=== PATIENT | male | born 1950 | race Caucasian/White ===

== ENCOUNTER 2021-11-11 12:11 | Outpatient (REF) | payer MEDICARE, SELFPAY ==
[2021-11-11 15:42] LABS: C Reactive Protein 0.24 mg/dL (< or = 0.50)
[2021-11-11 15:51] LABS: Erythrocyte Sedimentation Rate 20 MM/HR (0-15)
== END 2021-11-11 12:12 | disposition home or self-care (01) ==
LOC: HO.LAB 12:11
PROVIDERS: PCP Pediatrics; Visit Provider Internal Medicine Rheumatology
DX: Z13.89 Encounter for screening for other disorder (principal)
CPT/HCPCS: 36415; 82550; 85652; 86140

== ENCOUNTER → 2021-11-11 13:29 | Outpatient (BNVA) | payer MEDICARE, BC, SELFPAY | PROVIDERS: PCP Pediatrics; Visit Provider Internal Medicine Rheumatology | DX: L40.50 Arthropathic psoriasis, unspecified (principal); G60.0 Hereditary motor and sensory neuropathy; M35.3 Polymyalgia rheumatica; M17.11 Unilateral primary osteoarthritis, right knee; K62.7 Radiation proctitis | CPT/HCPCS: 36415; 82550; 85652; 86140; 99212 ==

== ENCOUNTER → 2022-01-06 14:59 | Outpatient (BNVA) | payer MEDICARE, SELFPAY | PROVIDERS: PCP Pediatrics; Visit Provider Internal Medicine Rheumatology | DX: G60.0 Hereditary motor and sensory neuropathy (principal); M35.3 Polymyalgia rheumatica; M17.11 Unilateral primary osteoarthritis, right knee; L40.9 Psoriasis, unspecified | CPT/HCPCS: 99212 ==

== ENCOUNTER 2022-01-10 11:08 | Outpatient (REF) | payer MEDICARE, SELFPAY ==
[2022-01-10 14:39] LABS: Erythrocyte Sedimentation Rate 10 MM/HR (0-15)
[2022-01-10 14:59] LABS: C Reactive Protein 0.32 mg/dL (< or = 0.50)
== END 2022-01-10 11:09 | disposition home or self-care (01) ==
LOC: HO.WFDLDS 11:08
PROVIDERS: Visit Provider Internal Medicine Rheumatology
DX: M35.3 Polymyalgia rheumatica (principal)
CPT/HCPCS: 36415; 85652; 86140

== ENCOUNTER → 2022-02-27 09:49 | Outpatient (BNVA) | payer MEDICARE, SELFPAY | PROVIDERS: PCP Pediatrics; Visit Provider Internal Medicine Rheumatology | DX: M17.11 Unilateral primary osteoarthritis, right knee (principal) | CPT/HCPCS: 20610 ==

== ENCOUNTER 2022-03-11 10:49 | Outpatient (REF) | payer MEDICARE, SELFPAY ==
--- NOTE | ~2022-03-11 | XR_ITS ---
EXAMINATION: XR KNEE, RIGHT CLINICAL INFORMATION: M17.11 - Unilateral primary osteoarthritis, right knee COMPARISON: None TECHNIQUE: Four views of the right knee. FINDINGS: No fracture or dislocation or destructive process. Normal bony mineralization. There is mild narrowing medial and lateral knee joint compartments. No erosive changes or subchondral sclerosis. There is chondrocalcinosis involving the medial and lateral menisci. No lateralization or tilting patella. Small suprapatellar effusion is present. Hoffa's fat pad appears normal. There is spurring at the quadriceps insertion patella. Scattered atherosclerotic vascular calcifications are present XR/XR knee RT 4V IMPRESSION: -Mild narrowing medial and lateral knee joint compartments. Meniscal chondrocalcinosis. -Small suprapatellar effusion. Spurring at quadriceps insertion patella.
== END 2022-03-11 10:50 | disposition home or self-care (01) ==
LOC: HO.HMGCX 10:49
PROVIDERS: PCP Pediatrics; Visit Provider Internal Medicine Rheumatology
DX: M17.11 Unilateral primary osteoarthritis, right knee (principal)
CPT/HCPCS: 73564

== ENCOUNTER → 2022-03-17 13:35 | Outpatient (BNVA) | payer MEDICARE, SELFPAY | PROVIDERS: PCP Pediatrics; Visit Provider Internal Medicine Rheumatology | DX: M17.11 Unilateral primary osteoarthritis, right knee (principal); G60.0 Hereditary motor and sensory neuropathy; C61 Malignant neoplasm of prostate | CPT/HCPCS: 99212 ==

== ENCOUNTER 2022-03-20 11:00 | Outpatient (REF) | payer MEDICARE, SELFPAY ==
[2022-03-20 14:02] LABS: MANUAL DIFF FLAG NO
[2022-03-20 14:09] LABS: Basophils Percent Auto 0.5 % (0-2); Eosinophils Absolute Auto 0.1 X10*3/uL (0.0-0.4); Eosinophils Percent Auto 1.4 % (0-4); Hematocrit 37.3 % (42.0-52.0); Hemoglobin 12.6 g/dl (14.0-18.0); Imm Gran Abs Auto 0.02 X10*3/uL (0.00-0.03); Imm Gran Pct Auto 0.4 % (0.0-0.4); Lymphocytes Absolute Auto 0.6 X10*3/uL (1.2-4.9); Lymphocytes Percent Auto 10.5 % (20-40); Mean Corpuscular HGB Conc 33.8 g/dl (31.0-36.0); Mean Corpuscular Volume 91.6 fL (80.0-98.0); Mean Platelet Volume 10.8 fL (9.4-12.4); Monocytes Absolute Auto 0.7 X10*3/uL (0.1-1.2); Monocytes Percent Auto 11.6 % (2-11); Neutrophils Absolute Auto 4.3 x10*3/uL (2.0-8.3); Neutrophils Percent Auto 75.6 % (45-73); Platelet Count 258 X10*3/uL (160-400); Red Blood Count 4.07 X10*6/uL (4.60-5.80); White Blood Count 5.7 X10*3/uL (4.8-10.8)
[2022-03-20 14:44] LABS: C Reactive Protein 0.62 mg/dL (< or = 0.50)
[2022-03-20 14:57] LABS: Erythrocyte Sedimentation Rate 23 MM/HR (0-15)
[2022-03-20 15:09] LABS: PSA,Total (Free>4and<10) < 0.05 ng/mL (0.00-4.00)
[2022-03-24 21:26] LABS: PSA, Ultra Sensitive <0.02 ng/mL
== END 2022-03-20 11:01 | disposition home or self-care (01) ==
LOC: HO.WFDLDS 11:00
PROVIDERS: Visit Provider Internal Medicine Rheumatology
DX: M17.11 Unilateral primary osteoarthritis, right knee (principal); C61 Malignant neoplasm of prostate; G60.0 Hereditary motor and sensory neuropathy; Z12.5 Encounter for screening for malignant neoplasm of prostate
CPT/HCPCS: 36415; 84153; 85025; 85652; 86140

== ENCOUNTER 2022-04-10 12:39 | Outpatient (REF) | payer MEDICARE, SELFPAY ==
--- NOTE | ~2022-04-10 | CT_ITS ---
EXAMINATION: CT KNEE WITHOUT CONTRAST, RIGHT CLINICAL INFORMATION: Unilateral primary osteoarthritis of the right knee. COMPARISON: X-ray of the right knee 02/2022. TECHNIQUE: CT scan of the right knee is performed. Reconstruction imaging performed at the acquisition workstation. This CT examination was performed using dose optimization techniques as appropriate, variously including the following: *Automated exposure control *Adjustment of mA and/or kV according to patient size (this includes techniques or standardized protocols for targeted exams where dose is matched to indication/reason for exam; i.e. extremities or head) *Use of iterative reconstruction technique DLP: 160 mGy-cm FINDINGS: There is chondrocalcinosis. There are small marginal osteophytes about the patellofemoral compartment and medial compartment without joint space narrowing indicative of mild osteoarthritis. Lateral compartment is otherwise unremarkable. Small joint effusion. There is mild atrophy and fatty infiltration of the medial head of the gastrocnemius distal to the knee joint. Arterial calcification noted. CT/CT knee RT wo IV con IMPRESSION: 1. Mild osteoarthritis of the right knee. 2. Chondrocalcinosis. 3. Atrophy and fatty infiltration of the medial head of the gastrocnemius.
== END 2022-04-10 12:40 | disposition home or self-care (01) ==
LOC: HO.CT 12:39
PROVIDERS: PCP Pediatrics; Visit Provider Internal Medicine Rheumatology
DX: M17.11 Unilateral primary osteoarthritis, right knee (principal); C61 Malignant neoplasm of prostate
CPT/HCPCS: 73700

== ENCOUNTER → 2022-11-24 13:10 | Outpatient (BNVA) | payer MEDICARE, SELFPAY | PROVIDERS: PCP Pediatrics; Visit Provider Internal Medicine Rheumatology | DX: M17.11 Unilateral primary osteoarthritis, right knee (principal); M35.3 Polymyalgia rheumatica; M11.20 Other chondrocalcinosis, unspecified site; G60.0 Hereditary motor and sensory neuropathy; L40.9 Psoriasis, unspecified | CPT/HCPCS: 20610; 99212 ==

== ENCOUNTER 2023-04-27 14:30 | Outpatient (AMB) | payer MEDICARE, SELFPAY ==
[2023-04-27 14:48] VITALS: BP 118/76; PULSE 79; TEMP 36.2; O2SAT 95; BMI 30.8
--- NOTE | 2023-04-27 14:48 | A.OFFVIS_ITS ---
Intake Vital Signs 04/27/23 14:48 Height 6 ft Weight 226 lb 13.69 oz BMI 30.8 BP 118/76 Blood Pressure Location Lt brachial Position Sitting Pulse 79 Pulse Source Pulse Oximeter Temp 97.1 F Temp Source Skin Pulse Oximetry (%) 95 Oxygen Delivery Method Room Air Intake Visit Reasons: oa knee, pmr Intake Note: Patient presents today for OA of knee and PMR follow up. Reports unsure about knee injection. 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 Accompanied by: Spouse Allergies dicloxacillin Allergy (Intermediate, Verified 04/27/23 14:48) Rash Medication List - Last Reconciled 04/27/23 by Abhilash Byers MD amiodarone 100 mg PO DAILY aspirin (Adult Low Dose Aspirin) 81 mg PO DAILY atorvastatin 40 mg PO DAILY cane As directed carvedilol 12.5 mg PO BID famotidine 20 mg PO DAILY furosemide 20 mg PO DAILY metformin ER 500 mg PO BID omeprazole 20 mg PO DAILY potassium chloride ER 20 mEq PO DAILY prednisone 5 mg PO DAILY sacubitril-valsartan 97-103 mg (Entresto) 1 tab PO BID triamcinolone acetonide 0.1% 1 appl topical BID warfarin 2.5 mg PO DAILY HPI HPI Comments History of Present Illness Details The patient returns today with his for evaluation of his PMR, possible psoriatic arthritis, osteoarthritis, and Yezfulp-Asnbx-Mmlqk neuropathy. He has again over the last 2 weeks tapered off the 2.5 mg daily prednisone. He had less pain when he was at 10 mg daily prednisone. However his major complaint today is ataxia. He has fallen 4 times this fall. He did hit his head once and did visit the ER but no bleed was detected. He did revisit Neurology. They were planning nerve conduction studies but the patient did not like the attitude of the neurologist so did not follow through with that plan. The patient has known Charcot Smita Tooth neuropathy for years. He is having more psoriatic disease on his scalp. Areas of pain today include the neck, shoulders, lower back, right knee. He does get occasional injections of corticosteroid for the right knee OA but it is not that bad presently. He remains on Entresto, potassium, and furosemide for CHF. He also has type 2 diabetes. He is on amiodarone and warfarin for atrial fibrillation. [facility] Medical History (Updated 04/27/23 @ 16:09 by Abhilash Byers MD) Radiation proctitis Osteoarthritis of right knee Polymyalgia rheumatica Prostate cancer Charcot Smita Tooth muscular atrophy Psoriasis Psoriasis arthropathica Social History Household Members: Spouse Housing: House Are you a primary multi care technician to a significant other at home: No Do you presently have visiting nurse or other home services: No 75 years or older and lives alone: No Alcohol intake: current Alcohol intake frequency: a few times a month Alcohol type: beer Patient Tobacco Use Status: Former Tobacco user Years Smoked: Quit 16 years e-Cigarette/Vaping Use: Never Used service: No Current occupational status: retired Review of Systems Const Details: Low stamina. Negative for appetite change, weight change, fever, chills, malaise Eyes Details: Occasional lightheadedness. Negative for vision change, dry eyes,headaches ENT Details: He had some thrush earlier this year. That has subsided. Negative for hearing change, tinnitus, oral ulcer, nose bleeds and oral dryness. Card Details: Negative chest pain, edema and syncope Resp Details: Negative for SOB, cough and wheezing GI Details: Occasional rectal bleeding attributed to radiation proctitis. Negative indigestion/heartburn, nausea, abdominal pain, bowel changes, diarrhea, constipation . Skin/Breast Details: Itchy rash on the scalp. Negative for itching, hives, Raynaud's symptoms, sun sensitivity, and skin cancer Neuro Details: Numbness and weakness in the feet, a chronic condition. Negative for epilepsy, palsy, stroke, changes in speech Endo Details: Negative for polyuria and polydypsia Dmitry/Lymph Details: Negative for excessive bruising or bleeding. Physical Exam Vital Signs: Last Vital Signs Temp 97.1 F 04/27/23 14:48 Pulse 79 04/27/23 14:48 BP 118/76 04/27/23 14:48 Pulse Ox 95 04/27/23 14:48 Oxygen Delivery Method Room Air 04/27/23 14:48 BMI result Body Mass Index 30.8 APPEARANCE: Patient in no acute distress EYES no redness, pupils equal and reactive to light, eyelids normal. No temporal artery tenderness, redness or swelling. EARS: External ear normal, canal clear and tympanic membrane normal. NOSE/SINUS: Airflow through both nares, no nasal discharge, no bleeding THROAT: Oral mucosa moist, no ulcerations NECK: No thyromegaly or masses, no adenopathy, trachea midline. HEART: Regulrar rhythm, S1-S2 heard, no murmurs, rubs or gallops. LUNG: Clear to percussion and auscultation ABD: Normal bowel sounds, no organomegaly, masses or tenderness. EXTREMITIES: No edema, no calf tenderness, normal peripheral pulses. NEURO: Oriented and alert x3. Some calf atrophy and weakness in the feet. Decreased sensation below the ankles. Reflexes are 1 trace to 1+ but symmetric.. SKIN: Patch of psoriasis on the left temporal region of the scalp. JOINT EXAM: Cervical Spine:.? Mild pain with lateral flexion at 15 degrees or rotation at 45 degrees. Some mild cervical muscle tenderness. Thoracic Spine:.? No scoliosis.? No tenderness on palpation. Lumbar Spine:.? Alignment normal.? Full range of motion with mild pain at the extremes of flexion or extension. no tenderness. Chest Wall:.? No tenderness, swelling, increased warmth or erythema. Hands: Normal pain-free range of motion with some mild thickening in the PIP joints but these are not tender.? Elsewhere no tenderness, swelling, increased warmth or erythema.? No thenar atrophy or sensory loss. Wrists:.? No pain with flexion or extension at 60 degrees.? Slight tenderness but no swelling. Elbows:. Normal pain-free range of motion without tenderness, swelling, increased warmth or erythema. Shoulders:.? Right: Mild pain with abduction at 135 degrees or with extremes of rotation. There is mild anterior tenderness with some questionable abductor weakness but no adenopathy. Left:? Full range of motion with slight discomfort at 150 degrees of abduction.? There is mild pain at the extremes of normal internal or external rotation.? Mild anterior tenderness.? Questionable abductor weakness but no adenopathy, swelling, increased warmth or erythema. Hips:.? Full range of motion without pain. Hip bursa:.? No tenderness. Knees:? Right:? Mild pain at the extremes of normal flexion or extension. There is no effusion, redness or warmth but there is some mild medial compartment tenderness. There is no popliteal tenderness or swelling in the popliteal region detected. Left:? Normal pain-free range of motion with mild patellofemoral crepitus but no effusion, tenderness, swelling, increased warmth or erythema.? Ankles:.? Normal pain-free range of motion without tenderness, swelling, increased warmth or erythema. Feet:.? Mild 1st MTP bony enlargement and hallux valgus deformity.? He does have high arches and 2 through 5 hammertoe deformity bilaterally.? No areas of tenderness, soft tissue swelling, increased warmth or erythema. ? Results Reviewed Results Reviewed: Laboratory Tests 03/20/22 11:06 ESR 23 H C-Reactive Protein 0.62 H [facility] [place] [address] XRay Report Signed Patient: Ludwig Knowles MR#: [id number] : 1950 Acct:[id number] Age/Sex: 72 / M Date: 03/11/[address]: Abhilash Byers MD Ordering Physician: Abhilash Byers MD Date of Service: 03/11/22 Procedure(s): XR knee RT 4V Accession Number(s): [id number] cc: Abhilash Byers MD~ EXAMINATION: XR KNEE, RIGHT CLINICAL INFORMATION: M17.11 - Unilateral primary osteoarthritis, right knee COMPARISON: None TECHNIQUE: Four views of the right knee. FINDINGS: No fracture or dislocation or destructive process. Normal bony mineralization. There is mild narrowing medial and lateral knee joint compartments. No erosive changes or subchondral sclerosis. There is chondrocalcinosis involving the medial and lateral menisci. No lateralization or tilting patella. Small suprapatellar effusion is present. Hoffa's fat pad appears normal. There is spurring at the quadriceps insertion patella. Scattered atherosclerotic vascular calcifications are present XR/XR knee RT 4V IMPRESSION: -Mild narrowing medial and lateral knee joint compartments. Meniscal chondrocalcinosis. -Small suprapatellar effusion. Spurring at quadriceps insertion patella. 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 No fracture. Code(s): M17.11 - Unilateral primary osteoarthritis, right knee (5) Psoriasis arthropathica: Comment: Onset 01/2010 - hips, wrists, shoulders. RF neg. Enbrel helpful 2010, skin disease worse so Enbrel stopped. Overlap with PMR - off and on prednisone Code(s): L40.50 - Arthropathic psoriasis, unspecified (6) Polymyalgia rheumatica: Code(s): M35.3 - Polymyalgia rheumatica Plan The patient seems to have more problem now with ambulating. This is mostly at present due to ataxia. I suspect this is primarily a result of the Cqtgobh-Xknvo-Eywcg neuropathy. It may also be accompanied by deconditioning with increased inflammatory symptoms in the hips and shoulders due to PMR. Evidence for this would be his positive response in the past to prednisone. I celestine lso thought at one point he might have psoriatic arthritis but presently does not have any small joint synovitis that would push us in that direction. There have also been OA symptoms in the right knee. He has a neurology referral apparently at [facility] but there is suspicion that he will get the be seen there for a year or two. I will see if we can see him at the [facility] here. In the meantime we will put him back on prednisone: 5 mg b.i.d. for 3 days, 5 mg in the morning and 2.5 mg in the evening for 3 days, and then 2.5 mg twice a day. He will also be referred for physical therapy. I think he needs a walker and/or wheelchair we hope that they will give us some guidance as to the essential hardware he may need to remain ambulatory. I also sent a prescription for his liquid triamcinolone lotion to put on the scalp where he has psoriasis. Follow-up in 6 weeks is reasonable. 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, R27.0 - Ataxia, unspecified Medications: New triamcinolone acetonide 0.1% 1 appl topical BID 60 mL 3RF L40.9 - Psoriasis, unspecified Changed From prednisone take one tab once daily 5 mg PO DAILY M35.3 - Polymyalgia rheumatica To prednisone 2 tab daily for three days, then two tab in AM for three days, then one twice a day thereafter 70 tabs 3RF M35.3 - Polymyalgia rheumatica Coding Level of Care Code Est Pt Level 4 (29327) Diagnoses Psoriasis L40.9 Ataxia R27.0 Charcot Smita Tooth muscular atrophy G60.0 Osteoarthritis of right knee M17.11 Psoriasis arthropathica L40.50 Polymyalgia rheumatica M35.3
== END 2023-04-27 16:16 | disposition home or self-care (01) ==
PROVIDERS: PCP Pediatrics; Visit Provider Internal Medicine Rheumatology
DX: L40.9 Psoriasis, unspecified (principal); R27.0 Ataxia, unspecified; G60.0 Hereditary motor and sensory neuropathy; M17.11 Unilateral primary osteoarthritis, right knee; L40.50 Arthropathic psoriasis, unspecified; M35.3 Polymyalgia rheumatica
CPT/HCPCS: 99214

== ENCOUNTER → 2023-04-27 14:30 | Outpatient (BNVA) | payer MEDICARE, SELFPAY | PROVIDERS: PCP Pediatrics; Visit Provider Internal Medicine Rheumatology | DX: L40.9 Psoriasis, unspecified (principal); L40.50 Arthropathic psoriasis, unspecified; R27.0 Ataxia, unspecified; G60.0 Hereditary motor and sensory neuropathy; M17.11 Unilateral primary osteoarthritis, right knee; M35.3 Polymyalgia rheumatica | CPT/HCPCS: 99212 ==

== ENCOUNTER 2024-03-25 13:41 | Outpatient (AMB) | payer MEDICARE, SELFPAY ==
--- NOTE | 2024-03-25 14:48 | A.OFFVIS_ITS ---
Vital Signs 03/25/24 14:49 Height 6 ft Weight 102 lb 4 oz BMI 13.9 BP 116/62 Blood Pressure Location Lt brachial Position Sitting Pulse 60 Pulse Source Pulse Oximeter Pulse Oximetry (%) 98 Oxygen Delivery Method Room Air Intake Visit Reasons: Osteoporosis Intake Note: Patient presents as a new patient to Dr. Garcia, has seen Dr. Byers in the past, last seen on 04/27/[address] Byers for osteoarthritis and polymyalgia rheumatica. Patient has had this for years, getting worse and worse. Pain is all over his body, and was treated with prednisone. Allergies dicloxacillin Allergy (Intermediate, Verified 03/25/24 14:54) Rash Medication List - Last Reconciled 03/25/24 by Hannah Garcia MD amiodarone 100 mg PO DAILY aspirin (Adult Low Dose Aspirin) 81 mg PO DAILY atorvastatin 40 mg PO DAILY cane As directed carvedilol 12.5 mg PO BID famotidine 20 mg PO DAILY furosemide 20 mg PO DAILY metformin ER 500 mg PO BID omeprazole 20 mg PO DAILY potassium chloride ER 20 mEq PO DAILY prednisone 2.5 mg PO BID sacubitril-valsartan 97-103 mg (Entresto) 1 tab PO BID triamcinolone acetonide 0.1% 1 appl topical BID warfarin 2.5 mg PO DAILY HPI Comments Details: Patient is a 74-year-old male with diabetes (A1c not seen), hypertension, heart failure with reduced ejection fraction, atrial fibrillation, coronary artery disease who is here today for follow-up of PMR, psoriasis with possible psoriatic arthritis, osteoarthritis and Bksitla-Bkfas-Tirzl neuropathy. Interval History: Patient was last seen by Dr. Abhilash Byers 04/27/2023. His major complaint at that time was ataxia reporting that he had fallen 4 times within a short span hitting his head requiring an ED visit but there was no bleed detected (patient is on low-dose warfarin). He was restarted on prednisone for short course and referred to physical therapy as it was thought that it was a combination of his neuropathy as well as his PMR symptoms that was contributing to his fall. Today patient states he continues to have issues with his balance. Did not follow up with physical therapy after the last visit. Complaining of persistent right knee pain and is requesting an injection. Also complaining of psoriasis to the scalp which is itchy. Currently asking if there is any stronger medication for his scalp psoriasis. With respect to his PMR and steroid use he is currently taking 2.5 mg b.i.d. daily. States that when he decreases he feels he is not able to get up and out of bed or walk up and down stairs. Denies prolonged morning stiffness, dactylitis, enthesitis, new psoriatic plaques on his elbows or knees. Rheumatologic History: Patient has a longstanding history of rheumatic diseases including psoriasis with possible psoriatic arthritis for which he in the past used Enbrel but this made his psoriasis worse and so this was stopped. This was then complicated by a new diagnosis of PMR for which he was placed on steroids. Patient has been on steroids for many years and has had difficulty tapering to off. Also diagnosed with osteoarthritis especially in the knee. Has received steroid injections for this in the past. Rheum Medications: Prednisone 2.5mg bid [facility]one [facility] Medical History (Updated 03/25/24 @ 16:29 by Hannah Garcia MD) intermodal truck driver systemic steroid user Radiation proctitis Osteoarthritis of right knee Polymyalgia rheumatica Prostate cancer Charcot Smita Tooth muscular atrophy Psoriasis Psoriasis arthropathica Social History Household Members: Spouse Housing: House Are you a primary critical care transport nurse to a significant other at home: No Do you presently have visiting nurse or other home services: No 75 years or older and lives alone: No Alcohol intake: current Alcohol intake frequency: a few times a month Alcohol type: beer Patient Tobacco Use Status: Former Tobacco user Years Smoked: Quit 16 years e-Cigarette/Vaping Use: Never Used service: No Current occupational status: retired Review of Systems Const Details: Review of Systems Constitutional: Denies fever, chills, weight loss ENT: Denies vision changes, eye pain or eye redness, dental caries, dry mouth GI: Denies nausea, vomiting, diarrhea, abdominal pain, change in BM Pulm: Denies SOB, FELIX, hemoptysis, wheezing Cards: Denies chest pain, palpitations Skin: Denies Raynaud's, rash, nail changes, photosensitivity, NUCLEAR MEDICAL TECH: Denies headaches, weakness, paresthesias, recurrent falls MSK: Complains of joint pain and joint stiffness. Denies joint swelling, muscle weakness, bone pain All other systems reviewed and are unremarkable except noted above Physical Exam Vital Signs: Last Vital Signs Pulse 60 03/25/24 14:49 BP 116/62 03/25/24 14:49 Pulse Ox 98 03/25/24 14:49 Oxygen Delivery Method Room Air 03/25/24 14:49 BMI result Body Mass Index 13.9 Const Other: Physical Examination Patient well appearing and in no apparent painful distress Able to rise from chair without support. ?Gait normal. Constitutional: ?Mucous membranes pink and moist patient alert and cooperative HEENT: ?Conjunctiva and sclera clear. ?Pupils equal round and reactive to light. ?No lymphadenopathy. ?Normal dentition. Resp: ?Normal respiratory effort and able to speak in complete sentences. ?Clear to auscultation bilaterally. ?No crackles, rales, rhonchi, wheezes heard. Cards: ?Regular rate and rhythm. ?S1 and S2 heard no murmurs. ?Radial pulses intact bilaterally MSK: ?No deformity, swelling, abnormalities noted to bilateral hands. ?No evidence of synovitis. ?Decreased range of motion to wrist flexion. Crepitations to bilateral knees Skin and nails: Nails with onycholysis and pitting. Scalp with psoriasis plaque snf up occiput Office Procedures Joint Injection/Aspiration Joint Injection/Aspiration Details: Procedure was explained to the patient and consent was obtained. ? The area of interest was identified and confirmed with patient. ?This was subsequently cleaned with chlorhexidine x3. ? The area was then anesthetized using ethyl chloride spray. 40 mg Kenalog with 1 cc 1% lidocaine was injected without issue. ?Minimal to no bleeding. ?Patient tolerated procedure. Primary Site: right knee Prep: site was prepped using aseptic technique Injected: 40 mg of, Kenalog, with 1 mL of and 1% plain lidocaine Approach Used: lateral parapatellar Procedure: The patient tolerated the procedure well Coding 52832 - Large joint Procedure code (CPT) selection complete Results Reviewed Results Reviewed: Reviewed knee x-ray 03/11/2022. Evidence of chondrocalcinosis noted. Joint space narrowing with osteophytes. Kellgren Neftaly grade 2-3 (my read) Laboratory Tests 11/11/21 01/10/22 03/20/22 Unknown 11:15 11:06 WBC 5.7 RBC 4.07 L Hgb 12.6 L Hct 37.3 L Plt Count 258 ESR 20 H 10 23 H C-Reactive Protein 0.62 H Assessment & Plan Assessment & Plan (1) Polymyalgia rheumatica: Code(s): M35.3 - Polymyalgia rheumatica Category: Medical Plan: #PMR Patient with a long history of PMR on and off steroids. Currently on 5 mg of p.o. prednisone. Discussed with patient and that extermination inspector steroids are not ideal. We will start transition to wean steroids my doing 5 mg alternating with 2.5 mg. If he is not able to tolerate this weaning we will consider adding methotrexate which will also help his psoriasis. (2) Psoriasis arthropathica: Comment: Onset 01/2010 - hips, wrists, shoulders. RF neg. Enbrel helpful 2010, skin disease worse so Enbrel stopped. Overlap with PMR - off and on prednisone Code(s): L40.50 - Arthropathic psoriasis, unspecified Category: Medical Plan: #Psoriatic arthrosis Patient with psoriatic arthrosis in remission. (3) Psoriasis: Code(s): L40.9 - Psoriasis, unspecified Category: Medical Plan: #Psoriasis Patient currently having a flare of his psoriasis to his scalp. Discussed alternative treatment to the triamcinolone including oral medications and topical biologics. Patient would rather continue with his topical triamcinolone as his psoriasis is not bothersome. Also offered dermatology referral. Patient stated that he has too many doctors already. (4) Psoriasis of nail: Code(s): L40.9 - Psoriasis, unspecified Plan: . (5) Osteoarthritis of right knee: Comment: March 2022 CT scan shows chondrocalcinosis and OA. No fracture. Code(s): M17.11 - Unilateral primary osteoarthritis, right knee Category: Medical Qualifiers: Osteoarthritis type: primary Qualified Code(s): M17.11 - Unilateral primary osteoarthritis, right knee Plan: #Primary OA of the right knee Patient with radiographically proven osteoarthritis. This is likely primary given the unilateral nature of it. Status post right knee steroid injection today. Given instructions to ice the knee today as well. (6) intermodal truck driver systemic steroid user: Code(s): Z79.52 - intermodal truck driver (current) use of systemic steroids Category: Medical Plan: #Long-term Use of Steroids Discussed with patient the risks and benefits of steroid for managing the rheumatic condition Benefits include: - Reduced pain, improved mobility, increased participation in activities, and decreased progression of disease Risks include: - GI upset, potential ultrasound worsening or formation (especially in patients > 65 years old), elevated blood pressure/worsening hypertension, elevated blood sugar/worsening diabetes control, worsening of bone density, elevated lipids/worsening triglycerides, cataract formation, weight gain Recommended using proton pump inhibitors (PPIs) for the duration of steroid use to reduce the risk of gastric ulcers and vitamin-D daily to reduce the risk of osteoporosis We will need to check DEXA at next visit Plan I spent 60 minutes reviewing the record and labs, seeing the patient, doing procedures, discussing the treatment plan and documenting in the medical record Orders: Orders Erythrocyte Sedimentation Rate Today L40.50 - Arthropathic psoriasis, unspecified, L40.9 - Psoriasis, unspecified, M17.11 - Unilateral primary osteoarthritis, right knee, M35.3 - Polymyalgia rheumatica C Reactive Protein Today L40.50 - Arthropathic psoriasis, unspecified, L40.9 - Psoriasis, unspecified, M17.11 - Unilateral primary osteoarthritis, right knee, M35.3 - Polymyalgia rheumatica Complete Blood Count Auto Diff Today L40.50 - Arthropathic psoriasis, unspecified, L40.9 - Psoriasis, unspecified, M17.11 - Unilateral primary osteoarthritis, right knee, M35.3 - Polymyalgia rheumatica AMB Joint Injection/Aspiration Today L40.50 - Arthropathic psoriasis, unspecified, L40.9 - Psoriasis, unspecified, M17.11 - Unilateral primary osteoarthritis, right knee, M35.3 - Polymyalgia rheumatica PT Evaluation and Treatment Today L40.50 - Arthropathic psoriasis, unspecified, L40.9 - Psoriasis, unspecified, M17.11 - Unilateral primary osteoarthritis, right knee, M35.3 - Polymyalgia rheumatica Comprehensive Met. Panel Today L40.50 - Arthropathic psoriasis, unspecified, L40.9 - Psoriasis, unspecified, M17.11 - Unilateral primary osteoarthritis, right knee, M35.3 - Polymyalgia rheumatica Medications: Changed From prednisone 2.5 mg PO BID 60 tabs 1RF M35.3 - Polymyalgia rheumatica To prednisone Take 2 pills (5mg) alternating with 1 pill (2.5mg) 5 mg (2 x 2.5 mg) PO ONCE 180 tabs 1RF 90 days M35.3 - Polymyalgia rheumatica Refilled triamcinolone acetonide 0.1% 1 appl topical BID 60 mL 3RF L40.9 - Psoriasis, unspecified Coding Level of Care Code Est Pt Level 5 (35054) Complex EM visit Add On G2211 Diagnoses Polymyalgia rheumatica M35.3 Psoriasis arthropathica L40.50 Psoriasis L40.9 Psoriasis of nail L40.9 Primary osteoarthritis of right knee M17.11 Osteoarthritis type: primary intermodal truck driver systemic steroid user Z79.52 CPT Codes Coding - 26204 Large joint: 32727 - Large joint ([id number])
[2024-03-25 14:49] VITALS: BP 116/62; PULSE 60; O2SAT 98; BMI 13.9
== END 2024-03-25 16:05 | disposition home or self-care (01) ==
PROVIDERS: PCP Pediatrics; Visit Provider Student in an Organized Health Care Education/Training Program
DX: M35.3 Polymyalgia rheumatica (principal); L40.50 Arthropathic psoriasis, unspecified; L40.9 Psoriasis, unspecified; M17.11 Unilateral primary osteoarthritis, right knee; Z79.52 Long term (current) use of systemic steroids
CPT/HCPCS: 20610; 99215

== ENCOUNTER → 2024-03-25 13:41 | Outpatient (BNVA) | payer MEDICARE, SELFPAY | PROVIDERS: PCP Pediatrics; Visit Provider Student in an Organized Health Care Education/Training Program | DX: M17.11 Unilateral primary osteoarthritis, right knee (principal); M18.0 Bilateral primary osteoarthritis of first carpometacarpal joints; M35.3 Polymyalgia rheumatica; G60.0 Hereditary motor and sensory neuropathy; L40.50 Arthropathic psoriasis, unspecified; Z79.52 Long term (current) use of systemic steroids | CPT/HCPCS: 20610; 99212 ==

== ENCOUNTER 2024-03-29 09:44 | Outpatient (REF) | payer MEDICARE, SELFPAY ==
[2024-03-29 10:50] LABS: MANUAL DIFF FLAG NO
[2024-03-29 11:06] LABS: Basophils Percent Auto 0.4 % (0-2); Eosinophils Percent Auto 0.4 % (0-4); Hematocrit 37.9 % (42.0-52.0); Hemoglobin 12.3 g/dl (14.0-18.0); Imm Gran Abs Auto 0.05 X10*3/uL (0.00-0.03); Imm Gran Pct Auto 0.5 % (0.0-0.4); Lymphocytes Absolute Auto 0.6 X10*3/uL (1.2-4.9); Lymphocytes Percent Auto 6.2 % (20-40); Mean Corpuscular HGB Conc 32.5 g/dl (31.0-36.0); Mean Corpuscular Hemoglobin 31.2 pg (27.0-33.0); Mean Corpuscular Volume 96.2 fL (80.0-98.0); Mean Platelet Volume 10.8 fL (9.4-12.4); Monocytes Absolute Auto 0.7 X10*3/uL (0.1-1.2); Monocytes Percent Auto 7.4 % (2-11); Neutrophils Absolute Auto 8.3 x10*3/uL (2.0-8.3); Neutrophils Percent Auto 85.1 % (45-73); Platelet Count 195 X10*3/uL (160-400); Red Blood Count 3.94 X10*6/uL (4.60-5.80); Red Cell Distribution Width 12.6 % (11.0-16.0); White Blood Count 9.7 X10*3/uL (4.8-10.8)
[2024-03-29 11:31] LABS: Albumin Level 4.1 g/dL (3.5-5.0); Alkaline Phosphatase 57 U/L (39-117); Anion Gap 10 (12-20); Aspartate Amino Transferase 33 U/L (5-37); Bilirubin Total 0.9 mg/dL (0.0-1.0); Blood Urea Nitrogen 18 mg/dL (9-16); C Reactive Protein < 0.10 mg/dL (< or = 0.50); Calcium 9.3 mg/dL (8.4-10.2); Carbon Dioxide 27 mmol/L (22-29); Chloride 110 mmol/L (96-108); Estimated Glomerular Filt Rate > 60; Glucose Random 201 mg/dL (60-115); Potassium 4.2 mmol/L (3.3-5.1); Sodium 143 mmol/L (135-145)
[2024-03-29 11:36] LABS: Erythrocyte Sedimentation Rate 7 MM/HR (0-15)
[2024-03-29 11:57] LABS: Alanine Aminotransferase 36 U/L (0-40)
== END 2024-03-29 09:45 | disposition home or self-care (01) ==
LOC: HO.10HDL 09:44
PROVIDERS: Visit Provider Student in an Organized Health Care Education/Training Program
DX: M35.3 Polymyalgia rheumatica (principal); M17.11 Unilateral primary osteoarthritis, right knee; L40.50 Arthropathic psoriasis, unspecified
CPT/HCPCS: 36415; 80053; 85025; 85652; 86140

== ENCOUNTER 2024-09-14 13:40 | Outpatient (AMB) | payer MEDICARE, SELFPAY ==
[2024-09-14 13:45] VITALS: BP 124/72; PULSE 73; O2SAT 96; BMI 30.2
--- NOTE | 2024-09-14 13:45 | MHC.OFFVIS ---
Vital Signs 09/14/24 13:45 Height 6 ft Weight 222 lb 10.67 oz BMI 30.2 BP 124/72 Blood Pressure Location Rt brachial Position Sitting Pulse 73 Pulse Source Pulse Oximeter Pulse Oximetry (%) 96 Oxygen Delivery Method Room Air Intake Visit Reasons: PMR Intake Note: Patient was last seen by Dr. Garcia on 03/25/2024. He presents today for follow up on PMR, OA, and psoriasis. Allergies dicloxacillin Allergy (Intermediate, Verified 09/14/24 13:49) Rash Medication List - Last Reconciled 09/14/24 by Hannah Garcia MD amiodarone 100 mg PO DAILY aspirin (Adult Low Dose Aspirin) 81 mg PO DAILY atorvastatin 40 mg PO DAILY cane As directed carvedilol 12.5 mg PO BID famotidine 20 mg PO DAILY ferrous sulfate (Feosol) 325 mg PO DAILY furosemide 20 mg PO DAILY metformin ER 500 mg PO BID omeprazole 20 mg PO DAILY potassium chloride ER 20 mEq PO DAILY prednisone 5 mg (2 x 2.5 mg) PO ONCE 90 days sacubitril-valsartan 97-103 mg (Entresto) 1 tab PO BID triamcinolone acetonide 0.1% 1 appl topical BID warfarin 2.5 mg PO DAILY HPI Comments Details: Patient is a 74-year-old male with diabetes (A1c not seen), hypertension, heart failure with reduced ejection fraction, atrial fibrillation, coronary artery disease who is here today for follow-up of PMR, psoriasis with possible psoriatic arthritis, osteoarthritis and Mlaequg-Wafaj-Isckl neuropathy. Interval History: Patient was last seen 03/25/2024 with me. At that time he was following up for his PMR on 2.5 mg twice a day Prednisone. Symptoms were in remission and plan was to slowly taper his medication. He was also having worsening psoriasis but refused further treatment other than topicals Also received a steroid injection to his right knee at that time for left knee osteoarthritis. Since that visit patient decrease his prednisone from 2.5 mg twice a day to 2.5mg once a day Also noted that the steroid injection helped his right knee No return of PMR symptoms on the decreased dose of steroids and no symptoms concerning for GCA Still has bilateral lower extremity neuropathy and sometimes pain Rheumatologic History: Patient has a longstanding history of rheumatic diseases including psoriasis with possible psoriatic arthritis for which he in the past used Enbrel but this made his psoriasis worse and so this was stopped. This was then complicated by a new diagnosis of PMR for which he was placed on steroids. Patient has been on steroids for many years and has had difficulty tapering to off. Also diagnosed with osteoarthritis especially in the knee. Has received steroid injections for this in the past. 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 Radiation proctitis Osteoarthritis of right knee Polymyalgia rheumatica Prostate cancer Charcot Smita Tooth muscular atrophy Psoriasis Psoriasis arthropathica Social History Household Members: Spouse Housing: House Are you a primary outdoor emergency care technician to a significant other at home: No Do you presently have visiting nurse or other home services: No 75 years or older and lives alone: No Alcohol intake: current Alcohol intake frequency: a few times a month Alcohol type: beer Patient Tobacco Use Status: Former Tobacco user Years Smoked: Quit 16 years e-Cigarette/Vaping Use: Never Used service: No Current occupational status: retired Review of Systems Const Details: Review of Systems Constitutional: Denies fever, chills, weight loss ENT: Denies vision changes, eye pain or eye redness, dental caries, dry mouth GI: Denies nausea, vomiting, diarrhea, abdominal pain, change in BM Pulm: Denies SOB, FELIX, hemoptysis, wheezing Cards: Denies chest pain, palpitations Skin: Denies Raynaud's, rash, nail changes, photosensitivity, RAILROAD DINING CAR STEWARDESS: Denies headaches, weakness, paresthesias, recurrent falls MSK: as per HPI All other systems reviewed and are unremarkable except noted above Physical Exam Vital Signs: Last Vital Signs Pulse 73 09/14/24 13:45 BP 124/72 09/14/24 13:45 Pulse Ox 96 09/14/24 13:45 Oxygen Delivery Method Room Air 09/14/24 13:45 BMI result Body Mass Index 30.2 Vital signs reviewed Physical Examination Patient well appearing and in no apparent painful distress Able to rise from chair without support. ?Gait normal. Constitutional: ?Mucous membranes pink and moist patient alert and cooperative HEENT: ?Conjunctiva and sclera clear. ?Pupils equal round and reactive to light. ?No lymphadenopathy. ?Normal dentition. Resp: ?Normal respiratory effort and able to speak in complete sentences. ?Clear to auscultation bilaterally. ?No crackles, rales, rhonchi, wheezes heard. Cards: ?Regular rate and rhythm. ?S1 and S2 heard no murmurs. ?Radial pulses intact bilaterally MSK: ?No deformity, swelling, abnormalities noted to bilateral hands. ?No evidence of synovitis. ?Decreased range of motion to wrist flexion. Crepitations to bilateral knees Skin and nails: Nails with onycholysis and pitting. Scalp with psoriasis plaque retirement up occiput Office Procedures AMB Joint Injection/Aspiration Joint Injection/Aspiration Details: Procedure was explained to the patient and consent was obtained. ? The area of interest was identified and confirmed with patient. ?This was subsequently cleaned with chlorhexidine x3. ? The area was then anesthetized using ethyl chloride spray. 40 mg Kenalog with 1 cc 1% lidocaine was injected without issue. ? Patient had bleeding postprocedure. Area compressed for 2-3 minutes and cold compact placed on knee. Primary Site: right knee Prep: site was prepped using aseptic technique and ethochloride spray was applied Injected: 40 mg of, Kenalog, with 1 mL of and 1% plain lidocaine Approach Used: anterior Procedure: The patient tolerated the procedure well and other (bleeding) Coding 86317 - Large joint Procedure code (CPT) selection complete Office Meds lidocaine (PF) 10 mg/mL (1 %) injection solution Performing Provider: Hannah Garcia MD Performing Location: [facility] [place] Rheumatology Administered by: Hannah Garcia MD on 09/15/24 10:42 Dose Route Admin Location Dispensed Lot Number Expiration Date [facility] Chemotherapist 1 mL Infiltration right knee 2 mL [id number] 09/20/26 27650-375-88 [facility] Kenalog 40 mg/mL suspension for injection Performing Provider: Hannah Garcia MD Performing Location: [facility] [place] Rheumatology Administered by: Hannah Garcia MD on 09/15/24 10:42 Dose Route Admin Location Dispensed Lot Number Expiration Date [facility] Chemotherapist 40 mg intra-articular right knee 1 mL [id number] 12/20/25 [address]-5 [employer] Results Reviewed Results Reviewed: Laboratory Tests 03/29/24 09:54 WBC 9.7 RBC 3.94 L Hgb 12.3 L Hct 37.9 L Plt Count 195 ESR 7 Sodium 143 Potassium 4.2 Chloride 110 H Carbon Dioxide 27 BUN 18 H Creatinine 0.94 AST 33 ALT 36 Alkaline Phosphatase 57 C-Reactive Protein < 0.10 Total Protein 7.0 Albumin 4.1 Assessment & Plan Assessment & Plan (1) Polymyalgia rheumatica: Code(s): M35.3 - Polymyalgia rheumatica Category: Medical Plan: #PMR Patient is a 74-year-old male with a long history of PMR on and off steroids. Patient was able to wean to 2.5 mg of prednisone daily. We will continue the slow tapering process Plan - Prednisone 2mg daily - RTC 4 months - Labs before visit: CBC, CMP, ESR, CRP (2) Osteoarthritis of right knee: Comment: March 2022 CT scan shows chondrocalcinosis and OA. No fracture. Code(s): M17.11 - Unilateral primary osteoarthritis, right knee Category: Medical Qualifiers: Osteoarthritis type: primary Qualified Code(s): M17.11 - Unilateral primary osteoarthritis, right knee Plan: #Primary OA of the right knee Patient with radiographically proven osteoarthritis. This is likely primary given the unilateral nature of it. Status post right knee steroid injection today. Given instructions to ice the knee today as well. (3) Psoriasis: Code(s): L40.9 - Psoriasis, unspecified Category: Medical Plan: #Psoriasis Psoriasis is stable. Still with some rash to his scalp, continues with triamcinolone topical (4) Psoriasis arthropathica: Comment: Onset 01/2010 - hips, wrists, shoulders. RF neg. Enbrel helpful 2010, skin disease worse so Enbrel stopped. Overlap with PMR - off and on prednisone Code(s): L40.50 - Arthropathic psoriasis, unspecified Category: Medical Plan: #Psoriatic arthritis Patient with psoriatic arthritis in remission. 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: Code(s): Z79.52 - petroleum terminal plant operator (current) use of systemic steroids Category: Medical Plan: #Long-term Use of Steroids Discussed with patient the risks and benefits of steroid for managing the rheumatic condition Benefits include: - Reduced pain, improved mobility, increased participation in activities, and decreased progression of disease Risks include: - GI upset, potential ultrasound worsening or formation (especially in patients > 65 years old), elevated blood pressure/worsening hypertension, elevated blood sugar/worsening diabetes control, worsening of bone density, elevated lipids/worsening triglycerides, cataract formation, weight gain Recommended using proton pump inhibitors (PPIs) for the duration of steroid use to reduce the risk of gastric ulcers and vitamin-D daily to reduce the risk of osteoporosis Labs checked: ?A1c, T spot, hepatitis-B and C serologies Pneumocystis jiroveci prophylaxis: ?Patient with risk factors including steroids greater than 50 mg for more than 30 days, age greater than 60 years, and lung involvement from underlying rheumatic disease requires prophylaxis and will be given so Plan I spent 30 minutes reviewing the record and labs, taking a history, examining the patient, discussing the treatment plan, ordering diagnostic work up and documenting in the medical record Orders: Orders Complete Blood Count Auto Diff 09/14/24 M35.3 - Polymyalgia rheumatica, 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 C Reactive Protein 09/14/24 M35.3 - Polymyalgia rheumatica, Z79.52 - FDC (current) use of systemic steroids AMB Joint Injection/Aspiration 09/14/24 M17.11 - Unilateral primary osteoarthritis, right knee Medications: New prednisone 2 mg (2 x 1 mg) PO DAILY 180 tabs 1RF M35.3 - Polymyalgia rheumatica lidocaine (PF) 1 mL Infiltration ONCE 2 mL 0RF M17.11 - Unilateral primary osteoarthritis, right knee Kenalog (triamcinolone acetonide) 40 mg intra-articular ONCE 1 mL 0RF NS M17.11 - Unilateral primary osteoarthritis, right knee Discontinued prednisone Take 2 pills (5mg) alternating with 1 pill (2.5mg) Discontinued Reason: Doctor's Order 5 mg (2 x 2.5 mg) PO ONCE 90 days 180 tabs 1RF M35.3 - Polymyalgia rheumatica Coding Level of Care Code Est Pt Level 4 (14924) Complex EM visit Add On G2211 Diagnoses Polymyalgia rheumatica M35.3 Primary osteoarthritis of right knee M17.11 Osteoarthritis type: primary Psoriasis L40.9 Psoriasis arthropathica 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
== END 2024-09-14 14:35 | disposition home or self-care (01) ==
LOC: HO.RHE 13:41
PROVIDERS: PCP Pediatrics; Visit Provider Student in an Organized Health Care Education/Training Program
DX: M35.3 Polymyalgia rheumatica (principal); M17.11 Unilateral primary osteoarthritis, right knee; L40.9 Psoriasis, unspecified; L40.50 Arthropathic psoriasis, unspecified; Z79.52 Long term (current) use of systemic steroids
CPT/HCPCS: 20610; 99214

== ENCOUNTER → 2024-09-14 13:40 | Outpatient (BNVA) | payer MEDICARE, SELFPAY | PROVIDERS: PCP Pediatrics; Visit Provider Student in an Organized Health Care Education/Training Program | DX: L40.50 Arthropathic psoriasis, unspecified (principal); G62.9 Polyneuropathy, unspecified; M35.3 Polymyalgia rheumatica; M17.11 Unilateral primary osteoarthritis, right knee; Z79.52 Long term (current) use of systemic steroids | CPT/HCPCS: 20610; 99212; J3300 ==

== ENCOUNTER 2025-02-13 13:17 | Outpatient (REF) | payer MEDICARE, SELFPAY ==
--- OUTSIDE RECORDS SUMMARY | 2025-02-13 14:40 | XMS_ITS | Clinical Summary ---
Author Organization 175 [facility] Address [address] [place] [address] Phone Care Team Providers Care Assistant Professor In Family Studies Name Role Phone Jolie Weiss MD Primary Care Provider [phone] Allergies Active Allergy Reactions Criticality Noted Date Comments Dicloxacillin Sodium Rash 05/14/2005 Penicillins Rash 12/09/2021 Medications aspirin 81 mg EC tablet 1 TABLET DAILY 9 Active clobetasoL 0.05 % external spray Apply 2 mL topically 2 times daily. 4 Active ferrous sulfate 325 mg (65 mg elemental iron) tablet Take 1 Tablet by mouth. 4 Active furosemide (LASIX) 20 mg tablet Take by mouth if needed. For weight gain 3 Active loperamide (IMODIUM A-D) 2 mg tablet 3 (three) times a day if needed. 4 Active pantoprazole (PROTONIX) 40 mg EC tablet Take 1 tablet (40 mg total) by mouth 1 (one) time each day before breakfast. 4 Active potassium chloride (KLOR-CON) 10 mEq CR tablet Take 2 tablets (20 mEq total) by mouth if needed. When taking furosemide 3 Active predniSONE 5 mg tablet,delayed release (DR/EC) Take 1 tablet by mouth 1 (one) time each day. Active carvediloL (COREG) 12.5 mg tablet Take 1 tablet (12.5 mg total) by mouth 2 (two) times a day with meals. 180 each 3 5 Active amiodarone (PACERONE) 200 mg tablet Take 0.5 tablets (100 mg total) by mouth 1 (one) time each day. 45 tablet 1 5 Active metFORMIN (GLUCOPHAGE) 500 mg tablet Take 2 tablets (1,000 mg total) by mouth 1 (one) time each day. 180 tablet 1 5 Active atorvastatin (LIPITOR) 40 mg tablet Take 1 tablet (40 mg total) by mouth 1 (one) time each day. 90 tablet 1 5 Active warfarin (COUMADIN) 2.5 mg tablet TAKE 1-2 TABLETS BY MOUTH EVERY DAY DIRECTED BY THE COUMADIN CLINIC 180 tablet 1 5 Active sacubitriL-vals lizy (Entresto) 97-103 mg per tablet Take 1 tablet by mouth 2 (two) times a day. 180 tablet 1 5 Active predniSONE (DELTASONE) 1 mg tablet Take 1 tablet (1 mg total) by mouth 1 (one) time each day. Active Active Problems Problem Noted Date Diagnosed Date halfway (current) use of anticoagulants 2023 Pulmonary nodules 02/15/2024 Overview (05/13/2024): 06/2023 - 8mm ground glass opacity in lateral posterior of RL base. Stable since 2021; Reticular nodular opacity in left lung base - new ; 2. 03/15 CT w/o Mild interval increase in the previously seen groundglass nodule in the right lower lobe. Additional groundglass nodules identified in bilateral lower lobes, right more numerous than left. They may represent recurrent inflammatory/infectious process. Short-term follow-up noncontrast CT in 3-6 months recommended. Small left pleural effusion. AAA (abdominal aortic aneurysm) (CMS/[facility] V24) Overview (05/13/2024): 3 cm 08/15. Last Assessment & Plan: Patient would like to transition his care to [facility]. I have made a referral to Dr. John of vascular medicine and have ordered a surveillance abdominal duplex ultrasound prior to that visit. Diverticular hemorrhage 12/05/2021 HFrEF (heart failure with re duced ejection fraction) (CMS/HCC V24, CMS/HCC V28) 12/05/2021 Overview (05/13/2024): -Has always had low normal to mild reduction in ejection fraction that is predominantly nonischemic in etiology-possibly related to high PVC burden, possibly related to alcoholism, untreated sleep apnea, hypertension that has not always been well controlled -In 11/05/2020 found to have showed mild, concentric left ventricular hypertrophy with mildly dilated left ventricle, severe, segmental LV systolic dysfunction with EF in the range of 30-35% -Unfortunately the above-mentioned echo was performed after the patient already received a Micra leadless pacemaker and not ICD -Had the cardiac cath which showed no obstructive coronary disease other than the totally occluded right coronary with good collateral flow from the left -Most recent echocardiogram on optimally tolerated medical therapy with Definity contrast enhanced imaging on 01/27/2022 and reviewed by myself comparing [id number] with previous Definity contrast enhanced images showed mild, concentric left ventricular hypertrophy with normal LV cavity size and low normal systolic function, normal regional wall motion with an ejection fraction of 50 to 55%, mildly dilated right ventricle with normal systolic function, mild right atrial and moderate left atrial enlargement, no hemodynamically significant valve disease, normal pulmonary artery systolic pressure, upper normal aortic root and ascending aorta measured at 3.8 cm each Last Assessment & Plan: He is clinically euvolemic on exam with recovery of ejection fraction on decent medical therapy. No changes today-continue current entresto, carvedilol; at this time no escalating of GDMT as EF has recovered and he is euvolemic without CHF hospitalizations; however, if necessary for DM-would consider adding SGLT-2. Assessment & Plan (07/27/2024 12:49 PM EST): No changes today-continue current entresto, carvedilol; at this time no escalating of GDMT as EF has recovered and he is euvolemic without CHF hospitalizations; however, if necessary for DM-would consider adding SGLT-2. I congratulated him on cutting back on alcohol use and recommended that he continue. Polymyalgia rheumatica ([facility] V24) 06/05/2021 Radiation proctitis 06/05/2021 GI bleed 04/04/2021 Overview (05/13/2024): Hosp 03/12, follow up GI colonoscopy neg. prob radiation proctitis EGD 10/13. V-tach ([facility] V24, [facility] V28) 10/24/2020 Overview (05/13/2024): -Holter monitor above showed high burden of ventricular ectopy around 10% from 2016 -At his last visit with ERINN Eugene on 09/24/2020, described a swirling sensation of something dave to lightheadedness lasting a few seconds-I was a ordered a Holter monitor and thank God he did because Holter monitor on 10/18/2020 showed atrial fibrillation throughout the recording with an average heart rate of 74 bpm, frequent PVCs, couplets, triplets, occasional ventricular bigeminy, trigeminy, and ventricular runs up to 91 beats! Overall burden of PVCs was 11.3%, there were also frequent pauses-25 of them greater than 3 seconds with the longest being 3.8 seconds at 3:15 in the morning -Was called as soon as we were notified by the device company about the VT and the pauses and sent immediately to [facility]-there he was seen by my partner Dr. 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 Continue beta- chaparro and amiodarone at current doses. Will update his TFT and LFTs if not done so already by his PCP at his next visit. Assessment & Plan (07/27/2024 12:49 PM EST): On amiodarone initially for suppression of VT but he is on the lower dose now mainly for A-fib since his EF has recovered and he has not had recurrence of VT. Anemia, unspecified 05/22/2020 Overview (11/03/2024): 05/11. Iron etc.. Normal. 11/13. Stable x yrs Primary osteoarthritis of both hands 07/28/2019 Overweight (BMI 25.0-29.9) 05/13/2019 Prostate cancer ([facility] V24, [facility] V28) 05/13 Overview (05/13/2024): Dx 01/07 [place] 7 2019: Treated with hormonal (Eligard) therapy and radiation therapy Ylhbpan-Gktth-Elcza disease 04/06/2018 Overview (05/13/2024): EMG 03/[address] Yanes Tachycardia-bradycardia ([facility] V24, [facility] V2 8) 04/17/2017 Overview (07/27/2024): -Status post Micra leadless pacemaker ([employer]) device placed on 10/19/[address] Diaz -Most recent device interrogation from April 2024 showing normal device function, because he has a leadless device, there is no events storage though there is comment that there were no events, there is adequate battery life Last Assessment & Plan: His device is functioning normally. Continue device clinic follow up. Assessment & Plan (07/27/2024 12:49 PM EST): Normal device function-continue device clinic follow-up. Dilatation of thoracic aorta ([facility] V24) 03/18 Overview (05/13/2024): 3/17. 4 cm. 09/06 stable 10/08 stable. 11/08 CT stable 11/09, 02/11 stable Chronic atrial fibrillation ([facility] V24, [facility] V28) 08/29/2016 Overview (05/13/2024): -status post cardioversion on sotalol therapy in 2014 -Recurrent A. fib in March 2015 at which point sotalol was increased to 120 mg twice daily with maintenance in sinus rhythm for a time -Sotalol was ultimately discontinued in August 2015 because of lack of efficacy and sinus bradycardia with greater than 3 second pauses - Has been transition to amiodarone for VT-see VT section but remains in chronic A-fib that is rate controlled -On Coumadin for CVA prophylaxis Last Assessment & Plan: He denies any major bleeding or bruising complications but does experience some superficial bruising. We did discuss the potential of switching to DOAC but he likes knowing how thin his blood actually is. He would like to stay on Coumadin. Assessment & Plan (07/27/2024 12:49 PM EST): He is currently on amiodarone and Coumadin for atrial fibrillation management. The dosage of amiodarone was previously reduced to 100 mg due to side effects, and he has not experienced any VT episodes since the reduction. He will continue with the current dosage of amiodarone. 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 Microalbuminuria 09/16/2012 Essential hypertension 10/06/2011 Overview (05/13/2024): Last Assessment & Plan: Blood pressure somewhat elevated in office. He does have episodes of reported low blood pressure likely corresponding with the onset of his carvedilol, Lasix and Entresto. The patient himself does not report any profound dizziness. His thinks that he may be under reporting some. However, he clearly states that he has not had any syncope or presyncope. Without profound symptoms, would not adjust his medical therapy. He will remain on his current dose of carvedilol and Entresto. He will notify us of any sustained episodes of dizziness or any profound and prolonged episodes of hypotension as his blood pressure corrects later on in the day. Fatty liver 07/24/2011 Overview (05/13/2024): H/o alcohol abuse Stopped 2019 Psoriasis 12/12/2010 Overview (05/13/2024): scalp Psoriatic arthritis ([facility] V24, [facility] V28) 0 12/12/2010 Overview (05/13/2024): Onset 01/2010 - hips, wrists, shoulders. RF neg. Enbrel helpful 2010, skin disease worse so Enbrel stopped EMELI (obstructive sleep apnea) 05/15/2010 Overview (05/13/2024): Dr. Paula, Dr. Dang No cpap x 2014 Coronary artery disease invo lving paimiut coronary artery of paimiut heart without angina pectoris 01/21/2010 Overview (05/13/2024): -Most recent cardiac cath on 11/15/2020 performed in work-up of VT and drop in ejection fraction showed minimal disease in the LAD territory at 20 to 30%, no disease in the branches, minor luminal irregularities of the circumflex and its branches, known totally occluded RCA with left to right collaterals, normal LVEDP of 11, no gradient upon pullback -Medically managed for RCA disease Last Assessment & Plan: Patient does not have any anginal symptoms discomfort. Continue ongoing medical therapy with aspirin, beta-chaparro, statin. He will notify us if he has any changes in his current condition ED (erectile dysfunction) 08/03/2008 Type 2 diabetes mellitus wit h peripheral vascular disease ([facility] V24, [facility] V28) 08/03/2008 Hypercholesteremia 04/11/2008 Overview (05/13/2024): IMO update Last Assessment & Plan: Very well-controlled lipid profile on last check. Continue statin at current dose. Alcohol abuse, continuous drinking behavior 01/21 Overview (05/13/2024): 4-5 daily Chronic obstructive pulmonar y disease ([facility] V24, [facility] V28) 12/30/2006 Overview (05/13/2024): 60 PACK YEARS, d/c 2006 Discussed LDCT 09/05. Chest CT pending by cardiology [facility] 12/30/2006 Overview (05/13/2024): S/P SURGERY 1992, REPEAT SURGERY 2006- Dr. Camargo- rods with fusion 05/13. CT showing degenerative changes and spinal stenosis. Patient, however, refuses physical therapy, physiatry/injection, surgical consult GERD (gastroesophageal reflux disease) 5 Overview (05/13/2024): EGD neg 04/05 EGD 10/13. Erosions. No bleeding Resolved Problems Problem Noted Date Diagnosed Date Resolved Date Atrial fibrillation ([facility] V24, [facility] V28) 05/04/2024 07/27/2024 Sick sinus syndrome ([facility] V24, [facility] V28) 12/05/2021 07/27/2024 Overview (05/13/2024): Last Assessment & Plan: Patient with normal function on his Micra leadless pacemaker. Continue in office and remote surveillance as per device protocol Encounters Date Type Department Care Team Description 2025 Anticoagulation - Warfarin Visit Coumadin [facility] [address] [place] [phone] Marissa Snyder LPN student records coordinator (current) use of anticoagulants (Primary Dx) 02/03/2025 Anticoagulation - Warfarin Visit Coumadin [facility] [address] [place] [phone] Marissa Snyder LPN student records coordinator (current) use of anticoagulants (Primary Dx); Chronic atrial fibrillation (CMS/[facility] V24, CMS/[facility] V28) 01/25/2025 Anticoagulation - Warfarin Visit Coumadin [facility] [address] [place] [address] Daysi Villalobos LPN halfway (current) use of anticoagulants (Primary Dx) 01/09/2025 2:30 PM EDT Office Visit [facility] - [address] [facility] [address] [place] [address] Kaila Brito MD Chronic atrial fibrillation ([facility] V24, [facility] V28) (Primary Dx); Coronary artery disease involving paimiut coronary artery of paimiut heart without angina pectoris; HFrEF (heart failure with reduced ejection fraction) (CMS/HCC V24, CMS/HCC V28); V-tach (CMS/HCC V24, CMS/HCC V28); Tachycardia-bradycard ia (CMS/HCC V24, CMS/HCC V28) 12/28/2024 1:45 PM EDT Anticoagulation - Warfarin Visit [facility] - [address] [phone] student records coordinator (current) use of anticoagulants (Primary Dx) 12/21/2024 1:30 PM EDT Anticoagulation - Warfarin Visit [facility] - [address] [phone] halfway (current) use of anticoagulants (Primary Dx) 12/19/2024 11:30 AM EDT Ancillary Procedure [facility] - [address] [facility] [address] [place] [address] 11/30/2024 1:45 PM EDT Anticoagulation - Warfarin Visit Coumadin [facility] - [address] [address] halfway (current) use of anticoagulants (Primary Dx) 11/23/2024 1:30 PM EDT Anticoagulation - Warfarin Visit [facility] - [address] [phone] halfway (current) use of anticoagulants (Primary Dx) 11/18/2024 Telephone Adult Medicine - [address] [phone] Jolie Weiss MD from Last 3 Months Immunizations Name Administration Dates Next Due COVID-19 (Moderna/Spikevax) 12yo and older 03/31/2023 Influenza Quadravalent, MDCK , 0.5ml, preservative free (Flucelvax) 6mo and older 04/05/2019 Influenza trivalent, 0.5mL ( Fluzone High-dose) 65yo and older 03/31/2023,04/17/2021,03/23/2020,03/26,03/18/2017 Influenza trivalent, with pr eservative (Fluzone; Afluria) 6mo and older 03/21/2016,04/16/2015,04/18/2014,03/18,03/01/2012,03/14/2011,05/15/2010 ,06/06/2009,04/11/2008,04/01/2007,1210/2004 Moderna SARS-CoV-2 COVID-19, mRNA, LNP-S, preservative free 08/23/2020 PPD Test 06/25/2011 Pneumococcal conjugate 13 va lent (Prevnar 13, PCV13) 2mo and older 03/21/2016 Pneumococcal polysaccharide 23 valent (Pneumovax 23) 2yo and older 05/05/2019,10/03/2013 Td Tetanus diptheria (Tdvax) 7yo and older 07/19/2004 Td, Unspecified 07/19/2004 Tdap Tetanus diptheria acell ular pertussis (Boostrix; Adacel) 7yo and older 01/15/2023,08/25/2012 Zoster Live 09/08/2016 Zoster recombinant (Shingrix ) 19yo and older 07/26/2020,04/25/2020 Surgical History Surgery Date Site/Laterality Comments HERNIA REPAIR PROCEDURE: HISTORICAL HERNIA REPAIR/ING; COMMENT: x3 TONSILLECTOMY PROCEDURE: HISTORICAL TONSILLECTOMY LUMBAR LAMINECTOMY PROCEDURE: HISTORICAL LUMB LAMINECTOMY; COMMENT: X2, second was a fusion COLONOSCOPY 03/26 PROCEDURE: HISTORICAL COLONOSCOPY; COMMENT: tics OTHER SURGICAL HISTORY 04/06/15 PROCEDURE: COLON CA SCRN NOT HI RSK IND; COMMENT: tics; repeat in ten yrs ESOPHAGOGASTRODUODENOSCOPY 04/06/15 PROCEDURE: WA ESOPHAGOGASTRODUODENOSCOPY TRANSORAL DIAGNOSTIC; COMMENT: normal CHOLECYSTECTOMY 02/2019 PROCEDURE: HISTORICAL CHOLECYSTECTOMY Medical History Medical History Date Comments Lumbago 12/30/2006 DX:Lumbago; COMM ENT: S/P SURGERY 1992, REPEAT SURGERY 2006 Inguinal hernia without ment ion of obstruction or gangrene, unilateral or unspecified, (not specified as recurrent) 12/30/2006 DX:Inguinal hernia without m ention of obstruction or gangrene, unilateral or unspecified, (not specified as recurrent); COMMENT: SURGERY X2 ON LEFT, X1 ON RIGHT Chronic airway obstruction, not elsewhere classified 12/30/2006 DX:Chronic airway obstructio n, not elsewhere classified; COMMENT: 45 PACK YEARS Alcohol abuse, continuous dr inking behavior 02/18/2008 DX:Alcohol abuse, continuous drinking behavior; COMMENT: 4-5 daily Obesity, unspecified 02/18/2008 DX:Obesity, unspecified ED (erectile dysfunction) 08/03/2008 DX:ED (erectile dysfunction) Bronchitis, not specified as acute or chronic DX:Bronchitis, not specified as acute or chronic Type II or unspecified type diabetes mellitus without mention of complication, not stated as uncontrolled 08/03/2008 DX:Type II or unspecified ty pe diabetes mellitus without mention of complication, not stated as uncontrolled Esophageal reflux DX:Esophageal reflux Heart disease, unspecified DX:He art disease, unspecified Unspecified essential hypertension DX:Unspecified essential hypertension CAD (coronary artery disease) 01/21/2010 DX :CAD (coronary artery disease) Headache(784.0) 01/21/2010 DX:Headache(784. 0) Inflammatory arthritis 05/24/2010 DX:Inflam matory arthritis Psoriasis 12/12/2010 DX:Psoriasis Family History Medical History Relation Name Comments Alcohol/Drug Brother 1 No Known Problems Brother 2 Arthritis Father Stroke Mother Cataract, A-fib , DM Lung disease Paternal Grandmother Lung cancer Sister 1 No Known Problems Son 1 Other: charcot karin tooth Son 2 Relation Name Status Comments Brother 1 (Age 50) Brother 2 Alive Father Mother Paternal Grandmother Sister 1 (Age 44) Sister 2 Son 1 Alive X2 Son 2 Alive Social History Tobacco Use Types Packs/Day Years Used Date Smoking Tobacco: Former Cigarettes 1.5 35.6 0 06/22/1971 - 01/11/2007 Smokeless Tobacco: Never Alcohol Use Standard Drinks/Week Comments Yes 21 (1 standard drink = 0.6 oz pu re alcohol) [facility] Sex and Gender Information Value Date Recorded Sex Assigned at Male 09/08/2024 10:35 AM EDT Legal Sex Male 9:48 AM EST Gender Identity Male 09/08/2024 10:35 AM EDT Sexual Orientation Straight 09/08/2024 10 :35 AM EDT Obstetrics History Last Filed Vital Signs Vital Sign Reading Time Taken Comments Blood Pressure 128/76 01/09/2025 2:37 PM EDT Pulse 60 01/09/2025 2:37 PM EDT Temperature 36.4 C (97.6 F) 11/10/2024 2:59 PM EDT Respiratory Rate 20 10/10/2024 2:01 PM EDT Oxygen Saturation 97% 01/09/2025 2:37 PM EDT Inhaled Oxygen Concentration - - Weight 102 kg (225 lb) 01/09/2025 2:37 PM EDT Height 182.9 cm (6') 01/09/2025 2:37 PM EDT Body Mass Index 30.52 01/09/2025 2:37 PM EDT Plan of Treatment Upcoming Encounters Date Type Department Care Team (Late st Contact Info) Description 04/12/2025 1:30 PM EDT Ancillary Procedure [facility] - [facility] [address] [facility] [address] [place] [address] 05/15/2025 3:00 PM EST Office Visit Adult Medicine [facility] [address] [place] [address] Oneida Zavala PA [address] [place] [address] 10/11/2025 2:00 PM EDT Office Visit Pulmonolgy - [place] [address] [facility] [address] [place] [phone] Patricia Hopper MD 175 [facility] [address] [place] [address] 10/26/2025 1:30 PM EDT Ancillary Procedure [facility] - [facility] [address] [facility] [address] [place] [phone] Health Maintenance Due Date Last Done Comments Diabetes: Annual Foot Exam 1961 Hepatitis A Vaccines (1 of 2 - Risk 2-dose series) 1970 Falls Risk Assessment 05/31/2022 Social Influencers of Health Screening 05/31/2022 Medicare Annual Wellness Visit 05/07/2024 05/07/2023 Depression Screening 06/22/2024 Diabetes: Annual Retina Eye Exam 07/30/2024 07/30/2023 COVID-19 Vaccine (8 - Moderna risk season) 2024 03/10/2024, 03/31/2023, 03/07/2022, Additional history exists Influenza Vaccine (#1) 2025 , 03/31/2023, 03/07/2022, Additional history exists Diabetes: Blood Sugar Control Test (HGBA1C) 05/05/2025 11/02/2024, 2024, 2024 Diabetes: Annual Urine Albumin-Creatinine Ratio (uACR) 11/02/2025 11/02/2024, 01/02/2023 Diabetes: Annual GFR (Glomerular Filtration Rate) 11/02/2025 11/02/2024, 08/05/2023 Hypertension/CHF/CAD Annual BMP Blood Test 11/02/2025 11/02/2024, 08/05/2023 Cholesterol Screening (Lipid Panel) 11/02/2029 11/02/2024, 2024, 2024 DTaP,Tdap,and Td Vaccines (5 - Td or Tdap) 01/15/2033 01/15/2023, 08/25/2012, 07/19/2004, Additional history exists Colorectal Cancer Screening: Colonoscopy 09/29/2033 09/30/2023 Pneumococcal Vaccine: 50+ Years Completed 05/05/2019, 03/21/2016, 10/03/2013 Hepatitis C Screening Completed 06/29/2020 Zoster Vaccines Completed 07/26/2020, 09/2019, 09/08/2016 RSV Immunization Adult Patients Completed 04/01/2024 HIB Vaccines Aged Out No longer eligi ble based on patient's age to complete this topic HPV Vaccines Aged Out No longer eligi ble based on patient's age to complete this topic Hepatitis B Vaccines Aged Out No long er eligible based on patient's age to complete this topic IPV Vaccines Aged Out No longer eligi ble based on patient's age to complete this topic MMR Vaccines Aged Out No longer eligi ble based on patient's age to complete this topic Meningococcal ACWY Vaccine Aged Out N o longer eligible based on patient's age to complete this topic Meningococcal B Vaccine Aged Out No l onger eligible based on patient's age to complete this topic RSV Immunization Patients Under 20 months Aged Out No longer eligible based on patient's age to complete this topic Varicella Vaccines Aged Out No longer eligible based on patient's age to complete this topic Medical Devices Implanted Type Area First Beater Device Identifier Shelf Expiration Date Model / Serial / Lot Medt-Card [id number] Implanted: (Quantity not on file) Cardiac Pacemaker [employer] - CARDIAC RHYTH-CRDM [id number] / [id number] / Medt-Card Micra Vr Tcp [id number] Implanted: (Quantity not on file) Cardiac Pacemaker [employer] - CARDIAC RHYTH-CRDM MICRA VR TCP / [id number] / Procedures Procedure Name Priority Date/Time Associated Diagnosis Comments PROTHROMBIN TIME WITH INR Routine 2025 PROTHROMBIN TIME WITH INR Routine 02/03/2025 PROTHROMBIN TIME WITH INR Routine 01/19/2025 ECG 12-LEAD Routine 01/09/2025 2:51 PM EDT Chronic atrial fibrillation (CMS/HCC V24, CMS/HCC V28) POC PROTIME INR BLOOD Routine 12/28/2024 halfway (current) use of anticoagulants POC PROTIME INR BLOOD Routine 12/21/2024 halfway (current) use of anticoagulants CARDIAC DEVICE CHECK- REMOTE- MURJ Routine 12/19/2024 11:28 AM EDT POC PROTIME INR BLOOD Routine 11/30/2024 halfway (current) use of anticoagulants POC PROTIME INR BLOOD Routine 11/23/2024 halfway (current) use of anticoagulants MICROALBUMIN CREATININE URINE RATIO Routine 11/02/2024 1:57 PM EDT Type 2 diabetes mellitus with other diabetic kidney complication, without long-term current use of insulin ([facility]/HCC V24, CMS/[facility] V28) COMPREHENSIVE METABOLIC PANEL Routine 11/02/2024 1:57 PM EDT Type 2 diabetes mellitus with other diabetic kidney complication, without long-term current use of insulin ([facility]/HCC V24, CMS/[facility] V28) HEMOGLOBIN A1C Routine 11/02/2024 1:57 PM EDT Type 2 diabetes mellitus with other diabetic kidney complication, without long-term current use of insulin (CMS/HCC V24, CMS/[facility] V28) LIPID PANEL WITH REFLEX TO DIRECT LDL Routine 11/02/2024 1:57 PM EDT 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 Pathologist [facility] INR 2.1 Prothrombin Time POC Blood Venous blood specimen / Unknown 2025 us Maddi Tirado MD LAB BLOOD ORDERABLES Final Res ult * ECG 12 lead (01/09/2025 2:51 PM EDT) Ventricular Rate ECG 60 BPM GEMUSE Atrial Rate 60 BPM GEMUSE QRS Duration 190 ms GEMUSE Q-T Interval 516 ms GEMUSE QTc 516 ms GEMUSE R [place] 148 degrees GEMUSE T [place] 77 degrees GEMUSE ECG Interpretation Ventricular-pac ed rhythm with likely underlying atrial fibrillation When compared with ECG of 01-JUL-2024 14:27, Vent. rate has decreased BY 29 BPM Confirmed by KAILA BRITO ([id number]) on 01/09/2025 3:43:18 PM GEMUSE 01/09/2025 2:51 PM EDT 01/09/2025 3:43 PM EDT us Kaila Brito MD ECG ORDERABLES Final Result GEMUSE * POC Protime INR Blood (12/28/2024) Only the most recent of4 resultswithin the time period is included. Lot Number INR POC 2.9 Prothrombin Time POC Exp Date Blood 12/28/2024 Maria Luisa Villa MD POINT OF CARE TEST ENTER/EDIT ORDERABLES Final Result * Cardiac device check - Remote- MURJ (12/19/2024 11:28 AM EDT) Date Time Interrogation Session [id number] CV DEVICE CHECK Type Interrogation Session Remote CV DEVICE CHECK Implantable Pulse Generator First Beater MDT CV DEVICE CHECK Implantable Pulse Generator Type IPG CV DEVICE CHECK Implantable Pulse Generator Model [id number] CV DEVICE CHECK Implantable Pulse Generator Serial Number [id number] CV DEVICE CHECK Implantable Pulse Generator Implant Date 20201019 CV DEVICE CHECK Battery Remaining Longevity 59.0 CV DEVICE CHECK Battery Voltage 2.950 CV D EVICE CHECK Battery GYRO MECHANIC Trigger 2.558 CV DEVICE CHECK Battery Status Middle of Service CV DEVICE CHECK Lead Channel Sensing Intrinsic Amplitude 9.788 CV DEVICE CHECK Lead Channel Setting Sensing Sensitivity 2.00 CV DEVICE CHECK Lead Channel Impedance Value 340 CV DEVICE CHECK Lead Channel Pacing Threshold Amplitude 1.000 CV DEVICE CHECK Lead Channel Pacing Threshold Pulse Width 0.2 CV DEVICE CHECK Lead Channel RV Pacing Threshold Date 2024-12-09 CV DEVICE CHECK Lead Channel Setting Pacing Amplitude 1.625 CV DEVICE CHECK Lead Channel Setting Pacing Pulse Width 0.2 CV DEVICE CHECK Ganesh Setting Mode (NBG Code) VVIR CV DEVICE CHECK Ganesh Setting Lower Rate Limit 60 CV DEVICE CHECK Ganesh Setting Maximum Sensor Rate 110 CV DEVICE CHECK Date of Service 2024-12-19 CV DEVICE CHECK Anatomical Region Laterality Modality Device Interroga tion 12/09/2024 10:0 3 AM EDT Impressions 12/19/2024 7:37 AM EDT Normal Remote: No Events * Normal Device Function * Alerts or events: None * Battery: OK, 4.92 yrs * Sensing, impedance and thresholds reviewed * Programmed parameters reviewed * Presenting rhythm reviewed * Heart Rate Histograms reviewed * No significant changes noted Narrative Procedure Note Jono Diaz MD - 12/19/2024 IMPRESSION: Normal Remote: No Events * Normal Device Function * Alerts or events: None * Battery: OK, 4.92 yrs * Sensing, impedance and thresholds reviewed * Programmed parameters reviewed * Presenting rhythm reviewed * Heart Rate Histograms reviewed * No significant changes noted Jono Diaz MD CV IMPLANTABLE CARDIAC DEVICE PROCEDURES Final Result * Lipid panel with reflex to direct LDL (11/02/2024 1:57 PM EDT) Cholesterol 124 0 - 200 mg/dL LAB CHEMISTRY METHOD 11/02/2024 5:55 PM EDT [facility] Triglycerides 89 0 - 150 mg/dL LAB CHEMISTRY METHOD 11/02/2024 5:55 PM EDT [facility] HDL 68 >=40 mg/dL LAB CHEMISTRY METHOD 11/02/2024 5:55 PM EDT [facility] LDL Calculated 38 0 - 100 mg/dL LAB CHEMISTRY METHOD 11/02/2024 5:55 PM EDT [facility] VLDL Cholesterol Vj 17.8 mg/dL LAB CHEMISTRY METHOD 11/02/2024 5:55 PM EDT [facility] Non HDL Chol. (LDL+VLDL) 56 <145 mg/dL LAB CHEMISTRY METHOD 11/02/2024 5:55 PM EDT [facility] Chol/HDL Ratio 1.8 0.0 - 4.4 LAB CHEMISTRY METHOD 11/02/2024 5:55 PM EDT [facility] Blood Venous blood specimen / Unknown Venipuncture / Unknown 11/02/2024 1:57 PM EDT 11/02/2024 1:57 PM EDT us Jolie Weiss MD LAB BLOOD ORDERABLES Final Res ult Performing Organization Address City/[facility]/ZIP Co de Phone Number [facility] [address] [place] [address], [place] [phone] * (ABNORMAL) Microalbumin creatinine urine ratio (11/02/2024 1:57 PM EDT) Creatinine, Urine 244.0 mg/dL LAB CHEMISTRY METHOD 11/02/2024 6:20 PM EDT [facility] Microalb, Ur 49.5(H) 0.0 - 29.0 mg/L LAB CHEMISTRY METHOD 11/02/2024 6:20 PM EDT [facility] Microalb/Crea t Ratio 20 <30 mg/g creat LAB CHEMISTRY METHOD 11/02/2024 6:20 PM EDT [facility] Urine Urine specimen obtained by clean catch procedure / Unknown Non-blood Collection / Unknown 11/02/2024 1:57 PM EDT 11/02/2024 1:57 PM EDT us Jolie Weiss MD LAB URINE ORDERABLES Final Res ult Performing Organization Address City/[facility]/ZIP Co de Phone Number [facility] [address] [place] [address], [place] [phone] * Hemoglobin A1c (11/02/2024 1:57 PM EDT) Hemoglobin A1C 6.4 <6.5 % LAB CHEMISTRY METHOD 11/02/2024 8:34 PM EDT [facility] Mean Bld Glu Estim. 137 mg/dL LAB CHEMISTRY METHOD 11/02/2024 8:34 PM T [facility] Blood Venous blood specimen / Unknown Venipuncture / Unknown 11/02/2024 1:57 PM EDT 11/02/2024 1:57 PM EDT C Cory Weiss MD LAB BLOOD ORDERABLES Final Res ult [facility] [address] [place] [address], [place] [phone] * (ABNORMAL) Comprehensive metabolic panel (11/02/2024 1:57 PM EDT) Sodium 139 133 - 145 mmol/L LAB CHEMISTRY METHOD 11/02/2024 5:55 PM [facility] Potassium 4.4 3.5 - 5.5 mmol/L LAB CHEMISTRY METHOD 11/02/2024 5:55 PM [facility] Chloride 107 96 - 110 mmol/L LAB CHEMISTRY METHOD 11/02/2024 5:55 PM [facility] CO2 26 21 - 32 mmol/L LAB CHEMISTRY METHOD 11/02/2024 5:55 PM [facility] Anion Gap 6 3 - 11 LAB CHEMISTRY METHOD 11/02/2024 5:55 PM [facility] Glucose 155(H) 70 - 100 mg/dL LAB CHEMISTRY METHOD 11/02/2024 5:55 PM [facility] BUN 19 5 - 25 mg/dL LAB CHEMISTRY METHOD 11/02/2024 5:55 PM [facility] Creatinine 1.09 0.70 - 1.30 mg/dL LAB CHEMISTRY METHOD 11/02/2024 5:55 PM [facility] eGFR 72 >=60 mL/min/1. 73m2 LAB CHEMISTRY METHOD 11/02/2024 5:55 PM [facility] Comment:Calculation based on the Chronic Kidney Disease Epidemiology Collaboration (CKD-EPI) equation refit without adjustment for race. BUN/Creatinine Ratio 17.4 LAB CHEMISTRY METHOD 11/02/2024 5:55 PM T [facility] Calcium 9.0 8.5 - 10.5 mg/dL LAB CHEMISTRY METHOD 11/02/2024 5:55 PM [facility] AST (SGOT) 29 10 - 42 unit/L LAB CHEMISTRY METHOD 11/02/2024 5:55 PM [facility] ALT (SGPT) 31 10 - 60 unit/L LAB CHEMISTRY METHOD 11/02/2024 5:55 PM [facility] Alkaline Phosphatase 63 42 - 121 unit/L LAB CHEMISTRY METHOD 11/02/2024 5:55 PM [facility] Total Protein 7.0 6.0 - 8.0 g/dL LAB CHEMISTRY METHOD 11/02/2024 5:[facility] Albumin 3.8 3.2 - 5.0 g/dL LAB CHEMISTRY METHOD 11/02/2024 5:55 PM [facility] Total Bilirubin 1.0 0.0 - 1.4 mg/dL LAB CHEMISTRY METHOD 11/02/2024 5:55 PM [facility] Blood Venous blood specimen / Unknown Venipuncture / Unknown 11/02/2024 1:57 PM EDT 11/02/2024 1:57 PM EDT Jolie Weiss MD LAB BLOOD ORDERABLES Final Res ult [facility] [address] [place] [address], [place] [phone] * Colonoscopy (09/30/2023) Colonoscopy no interpretation , abstracted Anatomical Region Laterality Modality Other Gloria Provider HEALTH MAINTENANCE Final Result * Diabetes Eye Exam (07/30/2023) Diabetes: Annual Retina Eye Exam abstracted us Historical Provider HEALTH MAINTENANCE Final Result * Hepatitis C Screening (06/29/2020) Hepatitis C Screening abstracted us Historical Provider HEALTH MAINTENANCE Final Result from Last 3 Months or Most Recently Relevant to Health Maintenance Insurance MEDICARE [facility] Care Teams Assistant Professor In Family Studies Relationship Specialty Start Date End Date Jolie Weiss MD [address] [facility] [place] [address] PCP - General Internal Medicine 04/06/14
--- OUTSIDE RECORDS SUMMARY | 2025-02-13 14:40 | XMS_ITS ---
Author Name CRISP Organization Unknown Care Team Organization Name Specialty Phone Email Start Date End Da [facility] 02/08/2025 [facility] TERI HAUSER Primary Care 04/29/2022 02/08/2024
--- OUTSIDE RECORDS SUMMARY | 2025-02-13 14:40 | XMS_ITS | Encounter Summary ---
Author Organization [facility] Address [address] [place] [address] Care Team Providers Care Senior Cytogenetic Technologist Name Role Phone Jolie Weiss MD Primary Care Provider [phone] Encounter Details Date Type Department Care Team (Latest Contact Info) Description 2025 Anticoagulation - Warfarin Visit [facility] [address] [place] [address] Marissa Snyder LPN superintendent terminal (current) use of anticoagulants (Primary Dx) Social History Tobacco Use Types Packs/Day Years Used Date Smoking Tobacco: Former Cigarettes 1.5 35.6 0 06/22/1971 - 01/11/2007 Smokeless Tobacco: Never Alcohol Use Standard Drinks/Week Comments Yes 21 (1 standard drink = 0.6 oz pu re alcohol) [facility] Sex and Gender Information Value Date Recorded Sex Assigned at Male 09/08/2024 10:35 AM EDT Legal Sex Male 9:48 AM EST Gender Identity Male 09/08/2024 10:35 AM EDT Sexual Orientation Straight 09/08/2024 10 :35 AM EDT documented as of this encounter Plan of Treatment Upcoming Encounters Date Type Department Care Team (Late st Contact Info) Description 04/12/2025 1:30 PM EDT Ancillary Procedure [facility] [address] [place] [address] 05/15/2025 3:00 PM EST Office Visit Adult Medicine - [place] [address] [place] [address] Oneida Zavala PA [address] [place] [address] 10/11/2025 2:00 PM EDT Office Visit Pulmonolgy - [place] [address] [place] [address] Patricia Hopper MD [address] [facility] [address] [place] [address] 10/26/2025 1:30 PM EDT Ancillary Procedure [facility] [address] [facility] [address] [place] [address] documented as of this encounter Procedures Procedure Name Priority Date/Time Associated Diagnosis Comments PROTHROMBIN TIME WITH INR Routine 2025 documented in this encounter Results * Prothrombin time with INR (2025) INR 2.1 Prothrombin Time POC Blood Venous blood specimen / Unknown 2025 Maddi Tirado MD LAB BLOOD ORDERABLES Final Res ult documented in this encounter Visit Diagnoses Diagnosis superintendent terminal (current) use of anticoagulants- Primary Long-term (current) use of anticoagulants Encounter for adjustment or management of cardiac device documented in this encounter Care Teams Senior Cytogenetic Technologist Relationship Specialty Start Date End Date Jolie Weiss MD [address] [place] [address] PCP - General Internal Medicine 04/06/14 documented as of this encounter
[2025-02-13 17:28] LABS: MANUAL DIFF FLAG NO
[2025-02-13 17:31] LABS: Hematocrit 36.5 % (42.0-52.0); Hemoglobin 12.0 g/dl (14.0-18.0); Imm Gran Abs Auto 0.01 X10*3/uL (0.00-0.03); Imm Gran Pct Auto 0.2 % (0.0-0.4); Lymphocytes Absolute Auto 0.7 X10*3/uL (1.2-4.9); Mean Corpuscular HGB Conc 32.9 g/dl (31.0-36.0); Mean Corpuscular Hemoglobin 30.2 pg (27.0-33.0); Mean Corpuscular Volume 91.7 fL (80.0-98.0); NRBC Abs Auto 0.000 X10*3/uL (0.0-0.012); NRBC Pct Auto 0.0 /100WBC (0.0-0.2); Platelet Count 260 X10*3/uL (160-400); Red Blood Count 3.98 X10*6/uL (4.60-5.80); White Blood Count 5.7 X10*3/uL (4.8-10.8)
[2025-02-13 18:07] LABS: Alanine Aminotransferase 19 U/L (0-40); Albumin Level 4.2 g/dL (3.5-5.0); Alkaline Phosphatase 69 U/L (39-117); Anion Gap 13 (12-20); Aspartate Amino Transferase 30 U/L (5-37); Blood Urea Nitrogen 16 mg/dL (9-16); Calcium 9.1 mg/dL (8.4-10.2); Carbon Dioxide 24 mmol/L (22-29); Chloride 106 mmol/L (96-108); Estimated Glomerular Filt Rate > 60; Potassium 4.5 mmol/L (3.3-5.1); Sodium 138 mmol/L (135-145); Total Protein 6.9 g/dL (6.5-8.0)
== END 2025-02-13 13:18 | disposition home or self-care (01) ==
LOC: HO.HKASLDS 13:17
PROVIDERS: Visit Provider Student in an Organized Health Care Education/Training Program
DX: M35.3 Polymyalgia rheumatica (principal); Z79.52 Long term (current) use of systemic steroids
CPT/HCPCS: 36415; 80053; 85025; 85652; 86140

== ENCOUNTER 2025-02-14 14:20 | Outpatient (AMB) | payer MEDICARE, SELFPAY ==
[2025-02-14 14:28] VITALS: BP 112/62; PULSE 60; O2SAT 96; BMI 29.0
--- NOTE | 2025-02-14 14:28 | MHC.OFFVIS ---
Vital Signs 02/14/25 14:28 Height 6 ft Weight 213 lb 13.574 oz BMI 29.0 BP 112/62 Blood Pressure Location Lt brachial Position Sitting Pulse 60 Pulse Source Pulse Oximeter Pulse Oximetry (%) 96 Oxygen Delivery Method Room Air Intake Visit Reasons: PMR Intake Note: Patient last seen by doctor Hannah Garcia on 09/14/24. Patient presents for PMR follow up and test results. Accompanied by: Spouse Allergies dicloxacillin Allergy (Intermediate, Verified 02/14/25 14:34) Rash Medication List - Last Reconciled 02/14/25 by Hannah Garcia MD amiodarone 100 mg PO DAILY aspirin (Adult Low Dose Aspirin) 81 mg PO DAILY atorvastatin 40 mg PO DAILY cane As directed carvedilol 12.5 mg PO BID famotidine 20 mg PO DAILY ferrous sulfate (Feosol) 325 mg PO DAILY furosemide 20 mg PO DAILY metformin ER 500 mg PO BID omeprazole 20 mg PO DAILY potassium chloride ER 20 mEq PO DAILY sacubitril-valsartan 97-103 mg (Entresto) 1 tab PO BID triamcinolone acetonide 0.1% 1 appl topical BID warfarin 2.5 mg PO DAILY HPI Comments Details: Patient is a 74-year-old male with diabetes (A1c not seen), hypertension, heart failure with reduced ejection fraction, atrial fibrillation, coronary artery disease who is here today for follow-up of PMR, psoriasis with possible psoriatic arthritis, osteoarthritis and Jjuevvw-[place]-Cloxv neuropathy. Interval History: Patient was last seen 09/14/[address] - Prednisone 2.5mg daily - No return of PMR or GCA sx - Steroid injection 03/25/24 helped left knee - Received steroid injection of right knee - Prednisone decreased 2mg daily - No synovitis on exam Today - Tapered off prednisone - No return of PMR or GCA sx - c/o right knee pain Rheumatologic History: Patient has a longstanding history of rheumatic diseases including psoriasis with possible psoriatic arthritis for which he in the past used Enbrel but this made his psoriasis worse and so this was stopped. This was then complicated by a new diagnosis of PMR for which he was placed on steroids. Patient has been on steroids for many years and has had difficulty tapering to off. Also diagnosed with osteoarthritis especially in the knee. Has received steroid injections for this in the past. Rheum Medications: Prednisone 2mg daily Triamcinolone topical PFSH Medical History assisted systemic steroid user Radiation proctitis Osteoarthritis of right knee Polymyalgia rheumatica Prostate cancer [place] Smita Tooth muscular atrophy Psoriasis Psoriasis arthropathica Social History Household Members: Spouse Housing: House Are you a primary director medicare sales to a significant other at home: No Do you presently have visiting nurse or other home services: No 75 years or older and lives alone: No Alcohol intake: current Alcohol intake frequency: a few times a month Alcohol type: beer Patient Tobacco Use Status: Former Tobacco user Years Smoked: Quit 16 years e-Cigarette/Vaping Use: Never Used service: No Current occupational status: retired Review of Systems Const Details: Review of Systems Constitutional: Denies fever, chills, weight loss ENT: Denies vision changes, eye pain or eye redness, dental caries, dry mouth GI: Denies nausea, vomiting, diarrhea, abdominal pain, change in BM Pulm: Denies SOB, FELIX, hemoptysis, wheezing Cards: Denies chest pain, palpitations Skin: Denies Raynaud's, rash, nail changes, photosensitivity, RECORD SYSTEMS ANALYST: Denies headaches, weakness, paresthesias, recurrent falls MSK: as per HPI All other systems reviewed and are unremarkable except noted above Physical Exam Exam Exam: Vital signs reviewed Physical Examination CONSTITUITIONAL Patient alert and cooperative. Well appearing and in no apparent painful distress MSK Hands Right Hand: Able to make a fist. No swelling or tenderness to palpation of the MCPs, PIPs or DIPs. Left Hand: Able to make a fist. No swelling or tenderness to palpation of the MCPs, PIPs or DIPs. Wrists Right Wrist: Full ROM to flexion and extension. No swelling or TTP Left Wrist: Full ROM to flexion and extension. No swelling or TTP Elbows Right Elbow: Full ROM. No swelling or TTP. No TTP of the medial epicondyle. No TTP of the lateral epicondyle Left Elbow: Full ROM. No swelling or TTP. No TTP of the medial epicondyle. No TTP of the lateral epicondyle Shoulders Right shoulder: Full ROM. No swelling noted. No TTP of the AC joint. No TTP of the subacromial bursa. No TTP of the posterior shoulder Left shoulder: Full ROM. No swelling noted. No TTP of the AC joint. No TTP of the subacromial bursa. No TTP of the posterior shoulder Crepitations felt/heard bilaterally Hip bursa: No tenderness to palpation bilaterally Knees Right knee: Full ROM. No swelling noted. No TTP of the knee joint line. No TTP of pes anserine bursa Left knee: Full ROM. No swelling noted. No TTP of the knee joint line. No TTP of pes anserine bursa. Crepitations felt bilaterally Ankles Right ankle: Good ankle dorsiflexion and plantar flexion. No swelling. No TTP of the ankle joint Left ankle: Good ankle dorsiflexion and plantar flexion. No swelling. No TTP of the ankle joint Feet Right foot: Negative squeeze test Left foot: Negative squeeze test Tender points? No tenderness to palpation of the bilateral trapezius, supraspinatus, anterior costochondral junctions, bilateral suboccipital muscle insertions SKIN PsO in the scalp Vital Signs: Last Vital Signs Pulse 60 02/14/25 14:28 BP 112/62 02/14/25 14:28 Pulse Ox 96 02/14/25 14:28 Oxygen Delivery Method Room Air 02/14/25 14:28 BMI result Body Mass Index 29.0 Office Procedures AMB Joint Injection/Aspiration Coding 69411 - Large joint Procedure code (CPT) selection complete Office Meds lidocaine (PF) 10 mg/mL (1 %) injection solution Performing Provider: Hannah Garcia MD Performing Location: [facility] Administered by: Stephan German RN on 02/14/25 15:12 Dose Route Admin Location Dispensed Lot Number Expiration Date [facility] Community Ambassador 1 mL Infiltration 2 mL [id number] 11/19/26 95223-576-69 [employer] Total Dispensed Waste 2 mL 50 % Kenalog 40 mg/mL suspension for injection Performing Provider: Hannah Garcia MD Performing Location: [facility] Administered by: Stephan German RN on 02/14/25 15:12 Dose Route Admin Location Dispensed Lot Number Expiration Date [facility] Community Ambassador 40 mg intra-articular 1 mL [id number] 02/19/27 9524-0937-10 [facility] Total Dispensed Waste 1 mL 0 % Results Reviewed Results Reviewed: Laboratory Tests 03/29/24 02/13/25 02/13/25 09:54 13:20 15:20 ESR 25 H Sodium 138 Potassium 4.5 Chloride 106 Carbon Dioxide 24 BUN 16 Creatinine 0.93 AST 30 ALT 19 C-Reactive Protein < 0.10 0.48 Assessment & Plan Assessment & Plan (1) Polymyalgia rheumatica: Code(s): M35.3 - Polymyalgia rheumatica Category: Medical Plan: #PMR Patient is a 74-year-old male with a long history of PMR on and off steroids. Patient tapered off prednisone Doing well without return of sx Mildly elevated ESR but normal CRP Will continue to monitor Plan - Monitor off DMARDs and prednisone - RTC 6 months - Labs before visit: CBC, CMP, ESR, CRP (2) Osteoarthritis of right knee: Comment: March 2022 CT scan shows chondrocalcinosis and OA. No fracture. Code(s): M17.11 - Unilateral primary osteoarthritis, right knee Category: Medical Qualifiers: Osteoarthritis type: primary Qualified Code(s): M17.11 - Unilateral primary osteoarthritis, right knee Plan: #Primary OA of the right knee Patient with radiographically proven osteoarthritis. Status post right knee steroid injection today. (3) Psoriasis: Code(s): L40.9 - Psoriasis, unspecified Category: Medical Plan: #Psoriasis Psoriasis is stable. Still with some rash to his scalp, continues with triamcinolone topical (4) Psoriasis arthropathica: Comment: Onset 01/2010 - hips, wrists, shoulders. RF neg. Enbrel helpful 2010, skin disease worse so Enbrel stopped. Overlap with PMR - off and on prednisone Code(s): L40.50 - Arthropathic psoriasis, unspecified Category: Medical Plan: #Psoriatic arthritis Patient with psoriatic arthritis in remission. Plan I spent 30 minutes reviewing the record and labs, taking a history, examining the patient, discussing the treatment plan, ordering diagnostic work up and documenting in the medical record Orders: Orders C Reactive Protein 6 Months Z79.899 - Other vermin exterminator (current) drug therapy AMB Joint Injection/Aspiration Today M17.11 - Unilateral primary osteoarthritis, right knee Complete Blood Count Auto Diff 6 Months Z79.899 - Other vermin exterminator (current) drug therapy Comprehensive Met. Panel 6 Months Z79.899 - Other vermin exterminator (current) drug therapy Erythrocyte Sedimentation Rate 6 Months Z79.899 - Other vermin exterminator (current) drug therapy Medications: Refilled triamcinolone acetonide 0.1% 1 appl topical BID 60 mL 3RF L40.9 - Psoriasis, unspecified Discontinued prednisone Discontinued Reason: Doctor's Order 2 mg (2 x 1 mg) PO DAILY 180 tabs 1RF M35.3 - Polymyalgia rheumatica Coding Level of Care Code Est Pt Level 4 (30971) Complex EM visit Add On G2211 Diagnoses Polymyalgia rheumatica M35.3 Primary osteoarthritis of right knee M17.11 Osteoarthritis type: primary Psoriasis L40.9 Psoriasis arthropathica L40.50 CPT Codes Coding - 55637 Large joint: 62610 - Large joint ([id number])
--- OUTSIDE RECORDS SUMMARY | 2025-02-14 15:20 | XMS_ITS | Clinical Summary ---
Author Organization 175 [facility] Address [address] [place] [address] Phone Care Team Providers Care Film Process Operator Name Role Phone Jolie Weiss MD Primary Care Provider [phone] Allergies Active Allergy Reactions Criticality Noted Date [...] Active Problems Problem Noted Date Diagnosed Date jail (current) use of anticoagulants 2023 Pulmonary nodules [...] left pleural effusion. AAA (abdominal aortic aneurysm) (CMS/[facility] V24) Overview (05/13/2024): 3 cm 08/15. Last [...] on 01/27/2022 and reviewed by myself comparing [id number] with previous Definity contrast enhanced images showed [...] and recommended that he continue. Polymyalgia rheumatica ([facility] V24) 06/05/2021 Radiation proctitis 06/05/2021 GI bleed 04/04/2021 Overview (05/13/2024): Hosp 03/12, follow up GI colonoscopy neg. prob radiation proctitis EGD 10/13. V-tach ([facility] V24, [facility] V28) 10/24/2020 Overview (05/13/2024): -Holter monitor above [...] and the pauses and sent immediately to [facility]-there he was seen by my [...] 07/28/2019 Overweight (BMI 25.0-29.9) 05/13/2019 Prostate cancer ([facility] V24, [facility] V28) 05/13 Overview (05/13/2024): Dx 01/07 [place] 7 2019: Treated with hormonal (Eligard) therapy and radiation therapy Dbruwbb-Tjgju-Qqgze disease 04/06/2018 Overview (05/13/2024): EMG 03/[address] Yanes Tachycardia-bradycardia ([facility] V24, [facility] V2 8) 04/17/2017 Overview (07/27/2024): -Status post [...] device clinic follow-up. Dilatation of thoracic aorta ([facility] V24) 03/18 Overview (05/13/2024): 3/17. 4 cm. 09/06 stable 10/08 stable. 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 ([facility] V24, [facility] V28) 02/04/2013 Type 2 diabetes mellitus wit h cataract ([facility] V24, [facility] V28) 10/04/2012 Diabetes mellitus with renal manifestation ([facility] V24, [facility] V28) 09/16/2012 Overview (05/13/2024): Microalbumin 22 on [...] Psoriasis 12/12/2010 Overview (05/13/2024): scalp Psoriatic arthritis ([facility] V24, [facility] V28) 0 12/12/2010 Overview (05/13/2024): Onset 01/2010 - hips, wrists, shoulders. RF neg. Enbrel helpful 2010, skin disease worse so Enbrel stopped EMELI (obstructive sleep apnea) 05/15/2010 Overview (05/13/2024): Dr. Paula, Dr. Dang No cpap x 2014 Coronary artery disease invo lving tangirnaq coronary artery of tangirnaq heart without angina pectoris 01/21/2010 Overview (05/13/2024): [...] diabetes mellitus wit h peripheral vascular disease ([facility] V24, [facility] V28) 08/03/2008 Hypercholesteremia 04/11/2008 Overview (05/13/2024): IMO update Last Assessment & Plan: Very well-controlled lipid profile on last check. Continue statin at current dose. Alcohol abuse, continuous drinking behavior 01/21 Overview (05/13/2024): 4-5 daily Chronic obstructive pulmonar y disease ([facility] V24, [facility] V28) 12/30/2006 Overview (05/13/2024): 60 PACK YEARS, d/c 2006 Discussed LDCT 09/05. Chest CT pending by cardiology [facility] 12/30/2006 Overview (05/13/2024): S/P SURGERY 1992, REPEAT SURGERY 2006- Dr. Camargo- rods with fusion 05/13. CT showing degenerative changes and spinal stenosis. Patient, however, refuses physical therapy, physiatry/injection, surgical consult GERD (gastroesophageal reflux disease) 5 Overview (05/13/2024): EGD neg 04/05 EGD 10/13. Erosions. No bleeding Resolved Problems Problem Noted Date Diagnosed Date Resolved Date Atrial fibrillation ([facility] V24, [facility] V28) 05/04/2024 07/27/2024 Sick sinus syndrome ([facility] V24, [facility] V28) 12/05/2021 07/27/2024 Overview (05/13/2024): Last Assessment & Plan: Patient with normal function on his Micra leadless pacemaker. Continue in office and remote surveillance as per device protocol Encounters Date Type Department Care Team Description 2025 Anticoagulation - Warfarin Visit Coumadin [facility] [address] [place] [phone] Marissa Snyder LPN parts counterman (current) use of anticoagulants (Primary Dx) 02/03/2025 Anticoagulation - Warfarin Visit Coumadin [facility] [address] [place] [phone] Marissa Snyder LPN parts counterman (current) use of anticoagulants (Primary Dx); Chronic atrial fibrillation (CMS/[facility] V24, CMS/[facility] V28) 01/25/2025 Anticoagulation - Warfarin Visit Coumadin [facility] [address] [place] [address] Daysi Villalobos LPN jail (current) use of anticoagulants (Primary Dx) 01/09/2025 2:30 PM EDT Office Visit [facility] - [address] [facility] [address] [place] [address] Kaila Brito MD Chronic atrial fibrillation ([facility] V24, [facility] V28) (Primary Dx); Coronary artery disease involving tangirnaq coronary artery of tangirnaq heart without angina pectoris; HFrEF (heart failure with reduced ejection fraction) (CMS/HCC V24, CMS/HCC V28); V-tach (CMS/HCC V24, CMS/HCC V28); Tachycardia-bradycard ia (CMS/HCC V24, CMS/HCC V28) 12/28/2024 1:45 PM EDT Anticoagulation - Warfarin Visit [facility] Clinic - [address] [address] parts counterman (current) use of anticoagulants (Primary Dx) 12/21/2024 1:30 PM EDT Anticoagulation - Warfarin Visit [facility]in Clinic - [address] [address] jail (current) use of anticoagulants (Primary Dx) 12/19/2024 11:30 AM EDT Ancillary Procedure [facility] - [address] [facility] [address] [place] [address] 11/30/2024 1:45 PM EDT Anticoagulation - Warfarin Visit Coumadin [facility] - [address] [address] jail (current) use of anticoagulants (Primary Dx) 11/23/2024 1:30 PM EDT Anticoagulation - Warfarin Visit Coumadin Clinic - [address] [address] jail (current) use of anticoagulants (Primary Dx) 11/18/2024 Telephone Adult Medicine - [address] [address] Jolie Weiss MD from Last 3 Months [...] repeat in ten yrs ESOPHAGOGASTRODUODENOSCOPY 04/06/15 PROCEDURE: AK ESOPHAGOGASTRODUODENOSCOPY TRANSORAL DIAGNOSTIC; COMMENT: normal CHOLECYSTECTOMY 02/2019 [...] drink = 0.6 oz pu re alcohol) [facility] Sex and Gender Information Value [...] Description 04/12/2025 1:30 PM EDT Ancillary Procedure [facility] - [facility] [address] [facility] [address] [place] [address] 05/15/2025 3:00 PM EST Office Visit Adult Medicine - [place] [address] [place] [phone] Oneida Zavala PA [address] [place] [address] 10/11/2025 2:00 PM EDT Office Visit Pulmonolgy - [place] 175 [facility] [address] [place] [phone] Patricia Hopper MD [address] [place] [address] 10/26/2025 1:30 PM EDT Ancillary Procedure [facility] - [facility] [address] [facility] [address] [place] [phone] Health Maintenance Due Date Last Done Comments [...] this topic Medical Devices Implanted Type Area Physiologist Device Identifier Shelf Expiration Date Model / Serial / Lot Medt-Card [id number] Implanted: (Quantity not on file) Cardiac Pacemaker [employer] - CARDIAC RHYTH-CRDM [id number] / [id number] / Medt-Card Micra Vr Tcp [id number] Implanted: (Quantity not on file) Cardiac Pacemaker [employer] - CARDIAC RHYTH-CRDM MICRA VR TCP / [id number] / Procedures Procedure Name Priority Date/Time Associated Diagnosis Comments PROTHROMBIN TIME WITH INR Routine 2025 PROTHROMBIN TIME WITH INR Routine 02/03/2025 PROTHROMBIN TIME WITH INR Routine 01/19/2025 ECG 12-LEAD Routine 01/09/2025 2:51 PM EDT Chronic atrial fibrillation (CMS/HCC V24, CMS/HCC V28) POC PROTIME INR BLOOD Routine 12/28/2024 jail (current) use of anticoagulants POC PROTIME INR BLOOD Routine 12/21/2024 jail (current) use of anticoagulants CARDIAC DEVICE CHECK- REMOTE- MURJ Routine 12/19/2024 11:28 AM EDT POC PROTIME INR BLOOD Routine 11/30/2024 parts counterman (current) use of anticoagulants POC PROTIME INR BLOOD Routine 11/23/2024 jail (current) use of anticoagulants MICROALBUMIN CREATININE URINE RATIO Routine 11/02/2024 1:57 PM EDT Type 2 diabetes mellitus with other diabetic kidney complication, without long-term current use of insulin (CMS/HCC V24, CMS/HCC V28) COMPREHENSIVE METABOLIC PANEL Routine 11/02/2024 1:57 PM EDT Type 2 diabetes mellitus with other diabetic kidney complication, without long-term current use of insulin (CMS/HCC V24, CMS/HCC V28) HEMOGLOBIN A1C Routine 11/02/2024 1:57 PM EDT Type 2 diabetes mellitus with other diabetic kidney complication, without long-term current use of insulin (CMS/HCC V24, CMS/HCC V28) LIPID PANEL WITH REFLEX TO DIRECT LDL Routine 11/02/2024 1:57 PM EDT Type 2 diabetes mellitus with other diabetic kidney complication, without long-term current use of insulin (CMS/HCC V24, CMS/HCC V28) COLONOSCOPY Routine 09/30/2023 DIABETES EYE EXAM Routine 07/30/2023 HEPATITIS C SCREENING Routine 06/29/2020 from Last 3 Months or Most Recently Relevant to Health Maintenance Results * Prothrombin time with INR (2025) Only the most recent of3 resultswithin the time period is included. Pathologist [facility] INR 2.1 Prothrombin Time POC Blood Venous blood specimen / Unknown 2025 us Maddi Tirado MD LAB BLOOD ORDERABLES Final Res ult * ECG 12 lead (01/09/2025 2:51 PM EDT) Ventricular Rate ECG 60 BPM GEMUSE Atrial Rate 60 BPM GEMUSE QRS Duration 190 ms GEMUSE Q-T Interval 516 ms GEMUSE QTc 516 ms GEMUSE R [place] 148 degrees GEMUSE T [place] 77 degrees GEMUSE ECG Interpretation Ventricular-pac ed rhythm with likely underlying atrial fibrillation When compared with ECG of 01-JUL-2024 14:27, Vent. rate has decreased BY 29 BPM Confirmed by KAILA BRITO ([id number]) on 01/09/2025 3:43:18 PM GEMUSE 01/09/2025 2:51 PM EDT 01/09/2025 3:43 PM EDT Kaila Brito MD ECG ORDERABLES Final Result [...] 11:28 AM EDT) Date Time Interrogation Session [id number] CV DEVICE CHECK Type Interrogation Session Remote CV DEVICE CHECK Implantable Pulse Generator Physiologist MDT CV DEVICE CHECK Implantable Pulse Generator Type IPG CV DEVICE CHECK Implantable Pulse Generator Model [id number] CV DEVICE CHECK Implantable Pulse Generator Serial Number [id number] CV DEVICE CHECK Implantable Pulse Generator Implant Date 20201019 CV DEVICE CHECK Battery Remaining Longevity 59.0 CV DEVICE CHECK Battery Voltage 2.950 CV D EVICE CHECK Battery RAILROAD DINING CAR STEWARDESS Trigger 2.558 CV DEVICE CHECK Battery Status [...] LAB CHEMISTRY METHOD 11/02/2024 5:55 PM EDT [facility] Triglycerides 89 0 - 150 mg/dL LAB CHEMISTRY METHOD 11/02/2024 5:55 PM EDT [facility] HDL 68 >=40 mg/dL LAB CHEMISTRY METHOD 11/02/2024 5:55 PM EDT [facility] LDL Calculated 38 0 - 100 mg/dL LAB CHEMISTRY METHOD 11/02/2024 5:55 PM EDT [facility] VLDL Cholesterol Vj 17.8 mg/dL LAB CHEMISTRY METHOD 11/02/2024 5:55 PM EDT [facility] Non HDL Chol. (LDL+VLDL) 56 <145 mg/dL LAB CHEMISTRY METHOD 11/02/2024 5:55 PM EDT [facility] Chol/HDL Ratio 1.8 0.0 - 4.4 LAB CHEMISTRY METHOD 11/02/2024 5:55 PM EDT [facility] Blood Venous blood specimen / Unknown Venipuncture / Unknown 11/02/2024 1:57 PM EDT 11/02/2024 1:57 PM EDT us Jolie Weiss MD LAB BLOOD ORDERABLES Final Res ult Performing Organization Address [facility] Co de Phone Number [facility] [address] [place] [address], [place] [phone] * (ABNORMAL) Microalbumin creatinine urine ratio (11/02/2024 1:57 PM EDT) Creatinine, Urine 244.0 mg/dL LAB CHEMISTRY METHOD 11/02/2024 6:20 PM EDT [facility] Microalb, Ur 49.5(H) 0.0 - 29.0 mg/L LAB CHEMISTRY METHOD 11/02/2024 6:20 PM EDT [facility] Microalb/Crea t Ratio 20 <30 mg/g creat LAB CHEMISTRY METHOD 11/02/2024 6:20 PM EDT [facility] Urine Urine specimen obtained by clean catch procedure / Unknown Non-blood Collection / Unknown 11/02/2024 1:57 PM EDT 11/02/2024 1:57 PM EDT us Jolie Weiss MD LAB URINE ORDERABLES Final Res ult Performing Organization Address [facility] de Phone Number [facility] [address] [place] [address], [place] [phone] * Hemoglobin A1c (11/02/2024 1:57 PM EDT) Hemoglobin A1C 6.4 <6.5 % LAB CHEMISTRY METHOD 11/02/2024 8:34 PM EDT [facility] Mean Bld Glu Estim. 137 mg/dL LAB CHEMISTRY METHOD 11/02/2024 8:34 PM EDT [facility] Blood Venous blood specimen / Unknown Venipuncture / Unknown 11/02/2024 1:57 PM EDT 11/02/2024 1:57 PM EDT [facility] Cory Weiss MD LAB BLOOD ORDERABLES Final Res ult [facility] [address] [place] [address], [place] [phone] * (ABNORMAL) Comprehensive metabolic panel (11/02/2024 1:57 PM EDT) Sodium 139 133 - 145 mmol/L LAB CHEMISTRY METHOD 11/02/2024 5:55 PM [facility] Potassium 4.4 3.5 - 5.5 mmol/L LAB CHEMISTRY METHOD 11/02/2024 5:55 PM [facility] Chloride 107 96 - 110 mmol/L LAB CHEMISTRY METHOD 11/02/2024 5:55 PM [facility] CO2 26 21 - 32 mmol/L LAB CHEMISTRY METHOD 11/02/2024 5:55 PM [facility] Anion Gap 6 3 - 11 LAB CHEMISTRY METHOD 11/02/2024 5:55 PM [facility] Glucose 155(H) 70 - 100 mg/dL LAB CHEMISTRY METHOD 11/02/2024 5:55 PM [facility] BUN 19 5 - 25 mg/dL LAB CHEMISTRY METHOD 11/02/2024 5:55 PM [facility] Creatinine 1.09 0.70 - 1.30 mg/dL LAB CHEMISTRY METHOD 11/02/2024 5:55 PM [facility] eGFR 72 >=60 mL/min/1. 73m2 LAB CHEMISTRY METHOD 11/02/2024 5:55 PM [facility] Comment:Calculation based on the Chronic Kidney Disease Epidemiology Collaboration (CKD-EPI) equation refit without adjustment for race. BUN/Creatinine Ratio 17.4 LAB CHEMISTRY METHOD 11/02/2024 5:55 PM [facility] Calcium 9.0 8.5 - 10.5 mg/dL LAB CHEMISTRY METHOD 11/02/2024 5:55 PM [facility] AST (SGOT) 29 10 - 42 unit/L LAB CHEMISTRY METHOD 11/02/2024 5:55 PM [facility] ALT (SGPT) 31 10 - 60 unit/L LAB CHEMISTRY METHOD 11/02/2024 5:55 PM [facility] Alkaline Phosphatase 63 42 - 121 unit/L LAB CHEMISTRY METHOD 11/02/2024 5:55 PM [facility] Total Protein 7.0 6.0 - 8.0 g/dL LAB CHEMISTRY METHOD 11/02/2024 5:55 PM [facility] Albumin 3.8 3.2 - 5.0 g/dL LAB CHEMISTRY METHOD 11/02/2024 5:55 PM [facility] Total Bilirubin 1.0 0.0 - 1.4 mg/dL LAB CHEMISTRY METHOD 11/02/2024 5:55 PM [facility] Blood Venous blood specimen / Unknown Venipuncture / Unknown 11/02/2024 1:57 PM EDT 11/02/2024 1:57 PM EDT us Jolie Weiss MD LAB BLOOD ORDERABLES Final Res ult [facility] [address] [place] [address], * Colonoscopy (09/30/2023) [facility] Colonoscopy no interpretation , abstracted Anatomical Region Laterality Modality Other us Gloria Freed MD HEALTH MAINTENANCE Final Result * Diabetes Eye Exam (07/30/2023) Diabetes: Annual Retina Eye Exam abstracted Historical Provider HEALTH MAINTENANCE Final Result * Hepatitis C Screening (06/29/2020) Hepatitis C Screening abstracted Historical Provider HEALTH MAINTENANCE Final Result from Last 3 Months or Most Recently Relevant to Health Maintenance Insurance MEDICARE [facility] Care Teams Film Process Operator Relationship Specialty Start Date End Date Jolie Weiss MD [address] [place] [address] [place] [address] PCP - General Internal Medicine 04/06/14
--- OUTSIDE RECORDS SUMMARY | 2025-02-14 15:20 | XMS_ITS | Encounter Summary ---
Author Organization [facility] Address [address] [place] [address] Care Team Providers Care Lift Manager Name Role Phone Jolie Weiss MD Primary Care Provider [phone] Encounter Details Date Type Department Care Team (Latest Contact Info) Description 2025 Anticoagulation - Warfarin Visit Coumadin Clinic [facility] [address] [place] [address] Marissa Snyder LPN buttermaker helper (current) use of anticoagulants (Primary Dx) Social History Tobacco Use Types Packs/Day Years Used Date Smoking Tobacco: Former Cigarettes 1.5 35.6 0 06/22/1971 - 01/11/2007 Smokeless Tobacco: Never Alcohol Use Standard Drinks/Week Comments Yes 21 (1 standard drink = 0.6 oz pu re alcohol) [facility] Sex and Gender Information Value [...] Description 04/12/2025 1:30 PM EDT Ancillary Procedure [facility] - [address] [place] [address] [place] [address] 05/15/2025 3:00 PM EST Office Visit Adult Medicine - [place] [address] [place] [address] Oneida Zavala PA [address] [place], [place] 10/11/2025 2:00 PM EDT Office Visit Pulmonolgy - [place] [address] [facility] [address] [place] [address] Patricia Hopper MD [address] [place] [address] 10/26/2025 1:30 PM EDT Ancillary Procedure [facility] - [facility] [address] [facility] [address] [place] [address] documented as of this encounter Procedures Procedure Name Priority Date/Time Associated Diagnosis Comments PROTHROMBIN TIME WITH INR Routine 2025 documented in this encounter Results * Prothrombin time with INR (2025) INR 2.1 Prothrombin Time POC Blood Venous blood specimen / Unknown 2025 Maddi Tirado MD LAB BLOOD ORDERABLES Final Res ult documented in this encounter Visit Diagnoses Diagnosis senior living (current) use of anticoagulants- Primary Long-term (current) use of anticoagulants Encounter for adjustment or management of cardiac device documented in this encounter Care Teams Lift Manager Relationship Specialty Start Date End Date Jolie Weiss MD [address] [place] [address] PCP - General Internal Medicine 04/06/14 documented as of this encounter
== END 2025-02-14 15:11 | disposition home or self-care (01) ==
LOC: HO.RHES 14:21
PROVIDERS: PCP Pediatrics; Visit Provider Student in an Organized Health Care Education/Training Program
DX: L40.50 Arthropathic psoriasis, unspecified (principal); M35.3 Polymyalgia rheumatica; M17.11 Unilateral primary osteoarthritis, right knee; L40.9 Psoriasis, unspecified
CPT/HCPCS: 20610; 99214

== ENCOUNTER → 2025-02-14 14:20 | Outpatient (BNVA) | payer MEDICARE, SELFPAY | PROVIDERS: PCP Pediatrics; Visit Provider Student in an Organized Health Care Education/Training Program | DX: M35.3 Polymyalgia rheumatica (principal); M17.11 Unilateral primary osteoarthritis, right knee; L40.9 Psoriasis, unspecified; L40.50 Arthropathic psoriasis, unspecified; Z79.52 Long term (current) use of systemic steroids | CPT/HCPCS: 20610; 99212; J2003; J3300 ==